=== PATIENT | female | born 1960 ===

== ENCOUNTER 2020-06-10 12:10 | Inpatient (IN) | payer OTHER ==
[2020-06-10] MEDS ORDERED: SODIUM CHLORIDE 0.9% 500 ML 500 ML IV ONE (12:29)
[2020-06-10 12:58] LABS: Hematocrit 45.7 % (30.3-42.9); Hemoglobin 15.1 gm/dl (10.1-14.3); Mean Corpuscular HGB Conc 33 % (30-34); Mean Corpuscular Volume 99 fl (79-97); Platelet Count 334 K/mm3 (140-440); Red Blood Count 4.62 M/mm3 (3.65-5.03); Red Cell Distribution Width 13.6 % (13.2-15.2)
--- NOTE | 2020-06-10 13:01 | XRay Report ---
CHEST 1 VIEW INDICATION: possible Sepsis. COMPARISON: None. FINDINGS: Support devices: None. Heart: Normal. Lungs/Pleura: No acute pulmonary or pleural findings. IMPRESSION: 1. No acute findings. Signer Name: Hi Wallis MD Signed: 06/10/2020 12:57 PM Workstation Name: [id number]
[2020-06-10 13:08] LABS: INR 1.12 (0.87-1.13)
[2020-06-10 13:11] LABS: Albumin 3.9 g/dL (3.9-5)
[2020-06-10] MEDS ORDERED: SODIUM CHLORIDE 0.9% 1000 ML 2,000 ML IV ONE ×2 (13:15→16:23)
[2020-06-10] MEDS ORDERED: cefTRIAXone/NS 1 GM/50 ML 1 GM/50 ML BAG IV ONE (13:15)
[2020-06-10] MEDS ORDERED: SODIUM CHLORIDE 0.9% 1000 ML 1,000 ML IV ONE (13:15)
[2020-06-10] MEDS ORDERED: DEXTROSE 50% IN WATER (25GM) 50 ML SYRINGE IV PRN ×2 (13:17→19:30)
[2020-06-10 13:36] LABS: Basophils % (Manual) 0 % (0.0-1.8); Eosinophils % (Manual) 0 % (0.0-4.3); Platelet Estimate Consistent w Auto; RBC Morphology Normal; Total Cells Counted 100
--- NOTE | 2020-06-10 13:55 | Cat Scan Report ---
CT abdomen pelvis wo con INDICATION: back pain dka. TECHNIQUE: All CT scans at this location are performed using the following dose modulation technique: Automated exposure control. CONTRAST: None. COMPARISON: None available. CT ABDOMEN: The parenchymal organs are unremarkable in appearance. Negative for abdominal mass, fluid or inflammation. The bowel is not dilated or thickened. CT PELVIS: Negative for mass, fluid or inflammation. Noninflamed diverticulosis is greatest at the si gmoid colon. IMPRESSION: Noninflamed colonic diverticulosis. Signer Name: Anam Draper MD Signed: 06/10/2020 1:51 PM Workstation Name: [id number]
[2020-06-10] MEDS ORDERED: D5W/0.45% NACL/KCL 20 MEQ 20 MEQ/1,000 ML BAG IV SCH (14:00)
[2020-06-10] MEDS ORDERED: INSULIN REGULAR, HUMAN 100 UNITS in SODIUM CHLORIDE 0.9% 99 ML IV SCH ×2 (14:00→20:00)
--- NOTE | 2020-06-10 14:27 | Emergency Department Report ---
ED General Adult HPI - General Chief complaint: Weakness Stated complaint: BACK PAIN, SOB PUI?: No Time Seen by Provider: 06/10/20 13:03 Source: patient, RN notes reviewed Mode of arrival: Wheelchair Limitations: Language Barrier, Physical Limitation, Other (The patient is a poor historian) - History of Present Illness Initial comments: The patient was evaluated in the emergency department for symptoms described in the history of present illness. He/she was evaluated in the context of the global COVID-19 pandemic, which necessitated consideration that the patient might be at risk for infection with the virus that causes COVID-19. Institutional protocols and algorithms that pertain to the evaluation of patients at risk for COVID-19 are in a state of rapid change based on information released by regulatory bodies including the CDC and federal and state organizations. These policies and algorithms were followed during the patient's care in the emergency department. Please note that these policies, procedures and recommendations changed on a rapid basis. Patient is a 59-year-old female. She is not known to myself previously. The patient presents to the ER today with a complaint of chest wall pain, back pain, malaise, weakness and fatigue. Please note that this provider is conversant in [place]. The patient is not accompanied by a friend or family at this time for additional information or collateral information. The patient is somewhat of a poor historian. She indicates that she is not having headache, neck pain, she indicates that she has having upper thoracic back pain, paralumbar back pain, and chest wall pain. She also complains of feeling shortness of breath, nausea. She denied loss of taste and smell. She denies dysuria to myself. She was not able to describe exacerbating or relievi ng factors. Patient acutely ill upon arrival, found to be hypothermic, hypotensive, and tachycardic. She was found to have metabolic acidosis, hyperglycemia, suspicious for diabetic ketoacidosis. Treated empirically with fluids, insulin drip, empiric antibiotics, and admitted to the intensive care unit under the care of Dr. Mary Rivera Location: chest, back Quality: other Consistency: other Improves with: other Worsens with: other Associated Symptoms: other - Related Data Allergies Allergy/AdvReac Type Severity Reaction Status Date / Time No Known Allergies Allergy Unverified 06/10/20 12:28 ED Review of Systems ROS: Stated complaint: BACK PAIN, SOB Other details as noted in HPI Comment: Patient is a poor historian Constitutional: malaise Respiratory: shortness of breath Cardiovascular: chest pain Gastrointestinal: as per HPI Genitourinary: as per HPI. denies: dysuria Musculoskeletal: back pain Neurological: weakness ED Physical Exam - General Limitations: Physical Limitation General appearance: anxious, in distress - Head Head exam: Present: atraumatic, normocephalic - Eye Eye exam: Present: normal appearance, EOMI - ENT ENT exam: Present: mucous membranes dry - Neck Neck exam: Present: normal inspection, full ROM. Absent: tenderness, meningismus - Respiratory Respiratory exam: Present: normal lung sounds bilaterally, accessory muscle use, other (The patient is tachypneic). Absent: respiratory distress, wheezes, rales, rhonchi, stridor - Cardiovascular Cardiovascular Exam: Present: normal rhythm, tachycardia, normal heart sounds. Absent: systolic murmur, diastolic murmur, rubs, gallop - GI/Abdominal GI/Abdominal exam: Present: soft. Absent: distended, tenderness, guarding, rebound, rigid, pulsatile mass - Extremities Exam Extremities exam: Present: normal inspection, full ROM, other (2+ pulses noted in the bilateral upper and lower extremities. There is no palpable cord. negative Homans sign. Muscular compartments are soft. The pelvis is stable.). Absent: calf tenderness - Back Exam Back exam: Present: normal inspection. Absent: tenderness, CVA tenderness (R), CVA tenderness (L), paraspinal tenderness, vertebral tenderness - Neurological Exam Neurological exam: Present: alert, other (No facial droop. Tongue midline. Extraocular movements intact bilaterally. Facial sensation intact to light touch in V1, V2, V3 distribution bilaterally. 5 and a 5 strength in 4 extremities. Sensation intact to light touch in 4 extremities.) - Psychiatric Psychiatric exam: Present: anxious - Skin Skin exam: Present: warm, dry, intact, normal color. Absent: rash ED Course Vital Signs 06/10/20 06/10/20 06/10/20 12:32 13:04 13:15 Temperature 94.9 F L Pulse Rate 133 H 116 H Respiratory 20 17 32 H Rate Blood Pressure 99/51 Blood Pressure 90/49 [Right] O2 Sat by Pulse 98 100 Oximetry 06/10/20 06/10/20 06/10/20 13:33 13:45 14:00 Temperature Pulse Rate 114 H 112 H Respiratory 32 H 28 H Rate Blood Pressure 96/54 100/50 Blood Pressure [Right] O2 Sat by Pulse 99 99 Oximetry 06/10/20 06/10/20 06/10/20 14:15 14:30 14:45 Temperature Pulse Rate 112 H 111 H 114 H Respiratory 29 H 27 H 29 H Rate Blood Pressure 96/54 106/47 100/50 Blood Pressure [Right] O2 Sat by Pulse 99 98 98 Oximetry 06/10/20 06/10/20 06/10/20 15:00 15:15 15:30 Temperature Pulse Rate 113 H 113 H 115 H Respiratory 29 H 29 H 28 H Rate Blood Pressure 106/47 104/52 101/59 Blood Pressure [Right] O2 Sat by Pulse 97 97 97 Oximetry 06/10/20 06/10/20 06/10/20 15:45 16:21 18:15 Temperature 96.6 F L 97.0 F L Pulse Rate 118 H Respiratory 28 H Rate Blood Pressure 101/59 Blood Pressure [Right] O2 Sat by Pulse 98 Oximetry ED Medical Decision Making - Lab Data Result diagrams: 06/10/20 12:36 06/10/20 17:24 Vital Signs 06/10/20 06/10/20 06/10/20 12:32 13:04 13:15 Temperature 94.9 F L Pulse Rate 133 H 116 H Respiratory 20 17 32 H Rate Blood Pressure 99/51 Blood Pressure 90/49 [Right] O2 Sat by Pulse 98 100 Oximetry 06/10/20 06/10/20 13:33 13:45 Temperature Pulse Rate 114 H Respiratory 32 H Rate Blood Pressure 96/54 Blood Pressure [Right] O2 Sat by Pulse 99 99 Oximetry Lab Results 06/10/20 06/10/20 06/10/20 Range/Units 12:36 12:36 12:36 WBC 25.8 H (4.5-11.0) K/mm3 RBC 4.62 (3.65-5.03) M/mm3 Hgb 15.1 H (10.1-14.3) gm/dl Hct 45.7 H (30.3-42.9) % MCV 99 H (79-97) fl MCH 33 H (28-32) pg MCHC 33 (30-34) % RDW 13.6 (13.2-15.2) % Plt Count 334 (140-440) K/mm3 Add Manual Diff Complete Total Counted 100 Seg Neuts % (Manual) 92.0 H (40.0-70.0) % Band Neutrophils % 0 % Lymphocytes % (Manual) 3.0 L (13.4-35.0) % Reactive Lymphs % (Man) 0 % Monocytes % (Manual) 5.0 (0.0-7.3) % Eosinophils % (Manual) 0 (0.0-4.3) % Basophils % (Manual) 0 (0.0-1.8) % Metamyelocytes % 0 % Myelocytes % 0 % Promyelocytes % 0 % Blast Cells % 0 % Nucleated RBC % Not Reportable Seg Neutrophils # Man 23.7 H (1.8-7.7) K/mm3 Band Neutrophils # 0.0 K/mm3 Lymphocytes # (Manual) 0.8 L (1.2-5.4) K/mm3 Abs React Lymphs (Man) 0.0 K/mm3 Monocytes # (Manual) 1.3 H (0.0-0.8) K/mm3 Eosinophils # (Manual) 0.0 (0.0-0.4) K/mm3 Basophils # (Manual) 0.0 (0.0-0.1) K/mm3 Metamyelocytes # 0.0 K/mm3 Myelocytes # 0.0 K/mm3 Promyelocytes # 0.0 K/mm3 Blast Cells # 0.0 K/mm3 WBC Morphology Not Reportable Hypersegmented Neuts Not Reportable Hyposegmented Neuts Not Reportable Hypogranular Neuts Not Reportable Smudge Cells Not Reportable Toxic Granulation Not Reportable Toxic Vacuolation Not Reportable Dohle Bodies Not Reportable Pelger-Huet Anomaly Not Reportable Evelia Rods Not Reportable Platelet Estimate Consistent w auto Clumped Platelets Not Reportable Plt Clumps, EDTA Not Reportable Large Platelets Not Reportable Giant Platelets Not Reportable Platelet Satelliting Not Reportable Plt Morphology Comment Not Reportable RBC Morphology Normal Dimorphic RBCs Not Reportable Polychromasia Not Reportable Hypochromasia Not Reportable Poikilocytosis Not Reportable Anisocytosis Not Reportable Microcytosis Not Reportable Macrocytosis Not Reportable Spherocytes Not Reportable Pappenheimer Bodies Not Reportable Sickle Cells Not Reportable Target Cells Not Reportable Tear Drop Cells Not Reportable Ovalocytes Not Reportable Helmet Cells Not Reportable [place] Bodies Not Reportable [place] Rings Not Reportable Gamaliel Cells Not Reportable Bite Cells Not Reportable Crenated Cell Not Reportable Elliptocytes Not Reportable Acanthocytes (Spur) Not Reportable Rouleaux Not Reportable Hemoglobin C Crystals Not Reportable Schistocytes Not Reportable Malaria parasites Not Reportable Joss Bodies Not Reportable Hem Pathologist Commnt No PT 14.6 (12.2-14.9) Sec. INR 1.12 (0.87-1.13) VBG pH (7.320-7.420) Sodium 122 L (137-145) mmol/L Potassium 4.0 (3.6-5.0) mmol/L Chloride 79.5 L (98-107) mmol/L Carbon Dioxide 5 L* (22-30) mmol/L Anion Gap 42 mmol/L BUN 35 H (7-17) mg/dL Creatinine 1.2 (0.6-1.2) mg/dL Estimated GFR 46 ml/min BUN/Creatinine Ratio 29 % Glucose 719 H* (65-100) mg/dL Lactic Acid (0.7-2.0) mmol/L Calcium 9.0 (8.4-10.2) mg/dL Total Bilirubin 0.50 (0.1-1.2) mg/dL AST 18 (5-40) units/L ALT 23 (7-56) units/L Alkaline Phosphatase 130 H (35-129) units/L Total Protein 7.8 (6.3-8.2) g/dL Albumin 3.9 (3.9-5) g/dL Albumin/Globulin Ratio 1.0 % TSH (0.270-4.200) mlU/mL 06/10/20 06/10/20 06/10/20 Range/Units 12:36 12:36 14:26 WBC (4.5-11.0) K/mm3 RBC (3.65-5.03) M/mm3 Hgb (10.1-14.3) gm/dl Hct (30.3-42.9) % MCV (79-97) fl MCH (28-32) pg MCHC (30-34) % RDW (13.2-15.2) % Plt Count (140-440) K/mm3 Add Manual Diff Total Counted Seg Neuts % (Manual) (40.0-70.0) % Band Neutrophils % % Lymphocytes % (Manual) (13.4-35.0) % Reactive Lymphs % (Man) % Monocytes % (Manual) (0.0-7.3) % Eosinophils % (Manual) (0.0-4.3) % Basophils % (Manual) (0.0-1.8) % Metamyelocytes % % Myelocytes % % Promyelocytes % % Blast Cells % % Nucleated RBC % Seg Neutrophils # Man (1.8-7.7) K/mm3 Band Neutrophils # K/mm3 Lymphocytes # (Manual) (1.2-5.4) K/mm3 Abs React Lymphs (Man) K/mm3 Monocytes # (Manual) (0.0-0.8) K/mm3 Eosinophils # (Manual) (0.0-0.4) K/mm3 Basophils # (Manual) (0.0-0.1) K/mm3 Metamyelocytes # K/mm3 Myelocytes # K/mm3 Promyelocytes # K/mm3 Blast Cells # K/mm3 WBC Morphology Hypersegmented Neuts Hyposegmented Neuts Hypogranular Neuts Smudge Cells Toxic Granulation Toxic Vacuolation Dohle Bodies Pelger-Huet Anomaly Evelia Rods Platelet Estimate Clumped Platelets Plt Clumps, EDTA Large Platelets Giant Platelets Platelet Satelliting Plt Morphology Comment RBC Morphology Dimorphic RBCs Polychromasia Hypochromasia Poikilocytosis Anisocytosis Microcytosis Macrocytosis Spherocytes Pappenheimer Bodies Sickle Cells Target Cells Tear Drop Cells Ovalocytes Helmet Cells [place] Bodies In[place] Rings [place] Cells Bite Cells Crenated Cell Elliptocytes Acanthocytes (Spur) Rouleaux Hemoglobin C Crystals Schistocytes Malaria parasites Joss Bodies Hem Pathologist Commnt PT (12.2-14.9) Sec. INR (0.87-1.13) VBG pH 7.021 L* (7.320-7.420) Sodium (137-145) mmol/L Potassium (3.6-5.0) mmol/L Chloride (98-107) mmol/L Carbon Dioxide (22-30) mmol/L Anion Gap mmol/L BUN (7-17) mg/dL Creatinine (0.6-1.2) mg/dL Estimated GFR ml/min BUN/Creatinine Ratio % Glucose (65-100) mg/dL Lactic Acid 2.80 H* (0.7-2.0) mmol/L Calcium (8.4-10.2) mg/dL Total Bilirubin (0.1-1.2) mg/dL AST (5-40) units/L ALT (7-56) units/L Alkaline Phosphatase (35-129) units/L Total Protein (6.3-8.2) g/dL Albumin (3.9-5) g/dL Albumin/Globulin Ratio % TSH 0.161 L (0.270-4.200) mlU/mL - EKG Data -: EKG Interpreted by Me Rate: tachycardia - EKG Data When compared to previous EKG there are: previous EKG unavailable 06/10/20 15:28 Sinus tachycardia, 122 bpm, left axis deviation, QTC is prolonged, poor R wave progression, the EKG is abnormal, the EKG is not a STEMI - Radiology Data Radiology results: pending, report reviewed, image reviewed X-ray of the chest is negative for acute disease. Noncontrast CT scan of the abdomen pelvis is negative for acute disease. - Medical Decision Making Differential diagnosis, include but not limited to: Diabetic ketoacidosis, pneumonia, urinary tract infection, intra-abdominal infection, thyroid derangement Assessment and plan: 59-year-old female who appears to be in diabetic ketoacidosis, with pseudohyponatremia, improving hypotension, hypothermia, requires initiation of IV fluids, antibiotics, active rewarming, and placement into the intensive care unit. Condition critical at this time. Hospital physician Dr Rivera has admitted the patient to the medical service for the aforementioned. Critical Care Time: Yes Critical care time in (mins) excluding proc time.: 35 Critical care attestation.: If time is entered above; I have spent that time in minutes in the direct care of this critically ill patient, excluding procedure time. ED Disposition Clinical Impression: DKA (diabetic ketoacidoses), Back pain, Hypothermia, SIRS (systemic inflammatory response syndrome), Chest pain Disposition: OP ADMIT IP TO THIS HOSP Is pt being admited?: Yes Does the pt Need Aspirin: No Condition: Critical
[2020-06-10 16:36] LABS: BUN/Creatinine Ratio 36; Blood Urea Nitrogen 32 mg/dL (7-17); Calcium 8.1 mg/dL (8.4-10.2); Hemolysis Index 18
[2020-06-10 17:35] LABS: Bacteria,Urine 1+ /HPF (Negative); Bilirubin,Urine NEG (Negative); Blood,Urine MOD (Negative); Color,Urine Straw (Yellow); Mucus,Urine FEW /HPF; Urobilinogen,Urine < 2.0 mg/dL (<2.0)
[2020-06-10 18:14] LABS: BUN/Creatinine Ratio 37; Blood Urea Nitrogen 33 mg/dL (7-17); Calcium 8.2 mg/dL (8.4-10.2); Hemolysis Index 10
--- NOTE | 2020-06-10 19:30 | History and Physical Report ---
History of Present Illness Date of examination: 06/10/20 Date of admission: 06/10/20 14:27 Chief complaint: Shortness of breath and nausea for 3 days History of present illness: 59-year-old Korean-speaking female comes in for shortness of breath and nausea. Very poor historian. No loss of smell or taste. Patient was found to be hypothermic hypotensive and tachycardic on arrival. Work-up in the ER revealed high blood glucose levels around 700 and patient to be in DKA. Not on any medications. No fever or chills. past medical history DM past surgical history n/a family history htn social history No smoking or alcohol Review of Systems ROS: Constitutional feels weak and nauseous HEENT no sore throat no post nasal drip no diplopia Neck no neck stiffness no lymph gland enlargement Chest and lungs no shortness of breath cough or wheezing CVS no chest pain no diaphoresis no palpitations GI nausea and vomiting present Genitourinary system no dysuria no flank pain Musculoskeletal system no muscle pains no joint pains EXTENSION SPECIALIST no syncope no seizures Skin no rash no itching Psychiatric no depression no homicidal or suicidal tendencies Hematologic no lymphedema or bruising Endocrine no polydipsia no polyuria no cold intolerance no heat intolerance Medications and Allergies Allergies Allergy/AdvReac Type Severity Reaction Status Date / Time No Known Allergies Allergy Unverified 06/10/20 12:28 Active Meds: Active Medications Aspirin (Baby Aspirin) 81 mg PO QDAY DENNIS Dextrose (D50w (25gm) Syringe) 0 ml IV Q30MIN PRN; Protocol PRN Reason: Hypoglycemia Insulin Human Regular 100 (units/ Sodium Chloride) 100 mls @ 1 mls/hr IV TITR DENNIS; Protocol Last Titration: 06/10/20 18:32 Dose: 8 units/hr, 8 mls/hr Documented by: Potassium Chloride/Dextrose/Sod Cl (D5w/0.45% Nacl/Kcl 20 Meq) 20 meq in 1,000 mls @ 125 mls/hr IV DIRECT DENNIS Sodium Chloride (Sodium Chloride Flush Syringe 10 Ml) 10 ml IV PRN NR Stop: 06/13/20 13:59 Exam - Constitutional Vitals: Temp Pulse Resp BP Pulse Ox 97.0 F L 118 H 28 H 101/59 98 06/10/20 18:15 06/10/20 15:45 06/10/20 15:45 06/10/20 15:45 06/10/20 15:45 General appearance: Present: no acute distress, well-nourished, other - EENT Eyes: Present: PERRL ENT: hearing intact, clear oral mucosa, other (Tongue dry) - Neck Neck: Present: supple, normal ROM - Respiratory Respiratory effort: normal Respiratory: bilateral: CTA - Cardiovascular Heart rate: 78 Rhythm: regular Heart Sounds: Present: S1 & S2. Absent: rub, click - Extremities Extremities: no ischemia, pulses intact, pulses symmetrical, No edema Peripheral Pulses: within normal limits - Abdominal General gastrointestinal: Present: soft, non-tender, non-distended, normal bowel sounds Female genitourinary: Present: normal - Integumentary Integumentary: Present: clear, warm, dry - Musculoskeletal Musculoskeletal: gait normal, strength equal bilaterally - Psychiatric Psychiatric: appropriate mood/affect, intact judgment & insight - Neurologic Neurologic: CNII-XII intact, moves all extremities - Allied Health Allied health notes reviewed: nursing, case management Results - Labs CBC & Chem 7: 06/10/20 12:36 06/11/20 05:23 Labs: Laboratory Last Values WBC 25.8 K/mm3 (4.5-11.0) H 06/10/20 12:36 RBC 4.62 M/mm3 (3.65-5.03) 06/10/20 12:36 Hgb 15.1 gm/dl (10.1-14.3) H 06/10/20 12:36 Hct 45.7 % (30.3-42.9) H 06/10/20 12:36 MCV 99 fl (79-97) H 06/10/20 12:36 MCH 33 pg (28-32) H 06/10/20 12:36 MCHC 33 % (30-34) 06/10/20 12:36 RDW 13.6 % (13.2-15.2) 06/10/20 12:36 Plt Count 334 K/mm3 (140-440) 06/10/20 12:36 Add Manual Diff Complete 06/10/20 12:36 Total Counted 100 06/10/20 12:36 Seg Neuts % (Manual) 92.0 % (40.0-70.0) H 06/10/20 12:36 Band Neutrophils % 0 % 06/10/20 12:36 Lymphocytes % (Manual) 3.0 % (13.4-35.0) L 06/10/20 12:36 Reactive Lymphs % (Man) 0 % 06/10/20 12:36 Monocytes % (Manual) 5.0 % (0.0-7.3) 06/10/20 12:36 Eosinophils % (Manual) 0 % (0.0-4.3) 06/10/20 12:36 Basophils % (Manual) 0 % (0.0-1.8) 06/10/20 12:36 Metamyelocytes % 0 % 06/10/20 12:36 Myelocytes % 0 % 06/10/20 12:36 Promyelocytes % 0 % 06/10/20 12:36 Blast Cells % 0 % 06/10/20 12:36 Nucleated RBC % Not Reportable 06/10/20 12:36 Seg Neutrophils # Man 23.7 K/mm3 (1.8-7.7) H 06/10/20 12:36 Band Neutrophils # 0.0 K/mm3 06/10/20 12:36 Lymphocytes # (Manual) 0.8 K/mm3 (1.2-5.4) L 06/10/20 12:36 Abs React Lymphs (Man) 0.0 K/mm3 06/10/20 12:36 Monocytes # (Manual) 1.3 K/mm3 (0.0-0.8) H 06/10/20 12:36 Eosinophils # (Manual) 0.0 K/mm3 (0.0-0.4) 06/10/20 12:36 Basophils # (Manual) 0.0 K/mm3 (0.0-0.1) 06/10/20 12:36 Metamyelocytes # 0.0 K/mm3 06/10/20 12:36 Myelocytes # 0.0 K/mm3 06/10/20 12:36 Promyelocytes # 0.0 K/mm3 06/10/20 12:36 Blast Cells # 0.0 K/mm3 06/10/20 12:36 WBC Morphology Not Reportable 06/10/20 12:36 Hypersegmented Neuts Not Reportable 06/10/20 12:36 Hyposegmented Neuts Not Reportable 06/10/20 12:36 Hypogranular Neuts Not Reportable 06/10/20 12:36 Smudge Cells Not Reportable 06/10/20 12:36 Toxic Granulation Not Reportable 06/10/20 12:36 Toxic Vacuolation Not Reportable 06/10/20 12:36 Dohle Bodies Not Reportable 06/10/20 12:36 Pelger-Huet Anomaly Not Reportable 06/10/20 12:36 Evelia Rods Not Reportable 06/10/20 12:36 Platelet Estimate Consistent w auto 06/10/20 12:36 Clumped Platelets Not Reportable 06/10/20 12:36 Plt Clumps, EDTA Not Reportable 06/10/20 12:36 Large Platelets Not Reportable 06/10/20 12:36 Giant Platelets Not Reportable 06/10/20 12:36 Platelet Satelliting Not Reportable 06/10/20 12:36 Plt Morphology Comment Not Reportable 06/10/20 12:36 RBC Morphology Normal 06/10/20 12:36 Dimorphic RBCs Not Reportable 06/10/20 12:36 Polychromasia Not Reportable 06/10/20 12:36 Hypochromasia Not Reportable 06/10/20 12:36 Poikilocytosis Not Reportable 06/10/20 12:36 Anisocytosis Not Reportable 06/10/20 12:36 Microcytosis Not Reportable 06/10/20 12:36 Macrocytosis Not Reportable 06/10/20 12:36 Spherocytes Not Reportable 06/10/20 12:36 Pappenheimer Bodies Not Reportable 06/10/20 12:36 Sickle Cells Not Reportable 06/10/20 12:36 Target Cells Not Reportable 06/10/20 12:36 Tear Drop Cells Not Reportable 06/10/20 12:36 Ovalocytes Not Reportable 06/10/20 12:36 Helmet Cells Not Reportable 06/10/20 12:36 [place] Bodies Not Reportable 06/10/20 12:36 [place] Rings Not Reportable 06/10/20 12:36 [place] Cells Not Reportable 06/10/20 12:36 Bite Cells Not Reportable 06/10/20 12:36 Crenated Cell Not Reportable 06/10/20 12:36 Elliptocytes Not Reportable 06/10/20 12:36 Acanthocytes (Spur) Not Reportable 06/10/20 12:36 Rouleaux Not Reportable 06/10/20 12:36 Hemoglobin C Crystals Not Reportable 06/10/20 12:36 Schistocytes Not Reportable 06/10/20 12:36 Malaria parasites Not Reportable 06/10/20 12:36 Joss Bodies Not Reportable 06/10/20 12:36 Hem Pathologist Commnt No 06/10/20 12:36 PT 14.6 Sec. (12.2-14.9) 06/10/20 12:36 INR 1.12 (0.87-1.13) 06/10/20 12:36 VBG pH 7.021 (7.320-7.420) L* 06/10/20 12:36 Sodium 133 mmol/L (137-145) L 06/10/20 17:24 Potassium 3.2 mmol/L (3.6-5.0) L 06/10/20 17:24 Chloride 97.5 mmol/L (98-107) L 06/10/20 17:24 Carbon Dioxide 5 mmol/L (22-30) L* 06/10/20 17:24 Anion Gap 34 mmol/L 06/10/20 17:24 BUN 33 mg/dL (7-17) H 06/10/20 17:24 Creatinine 0.9 mg/dL (0.6-1.2) 06/10/20 17:24 Estimated GFR > 60 ml/min 06/10/20 17:24 BUN/Creatinine Ratio 37 % 06/10/20 17:24 Glucose 515 mg/dL (65-100) H* 06/10/20 17:24 POC Glucose 464 (70-105) H 06/10/20 18:21 Lactic Acid 1.50 mmol/L (0.7-2.0) 06/10/20 15:56 Calcium 8.2 mg/dL (8.4-10.2) L 06/10/20 17:24 Total Bilirubin 0.50 mg/dL (0.1-1.2) 06/10/20 12:36 AST 18 units/L (5-40) 06/10/20 12:36 ALT 23 units/L (7-56) 06/10/20 12:36 Alkaline Phosphatase 130 units/L (35-129) H 06/10/20 12:36 Total Protein 7.8 g/dL (6.3-8.2) 06/10/20 12:36 Albumin 3.9 g/dL (3.9-5) 06/10/20 12:36 Albumin/Globulin Ratio 1.0 % 06/10/20 12:36 TSH 0.161 mlU/mL (0.270-4.200) L 06/10/20 14:26 Free T4 1.27 ng/dL (0.76-1.46) 06/10/20 15:56 Urine Color Straw (Yellow) 06/10/20 17:13 Urine Turbidity Clear (Clear) 06/10/20 17:13 Urine pH 5.0 (5.0-7.0) 06/10/20 17:13 Ur Specific [place] 1.015 (1.003-1.030) 06/10/20 17:13 Urine Protein 30 mg/dl mg/dL (Negative) 06/10/20 17:13 Urine Glucose (UA) >=500 mg/dL (Negative) 06/10/20 17:13 Urine Ketones 80 mg/dL (Negative) 06/10/20 17:13 Urine Blood Mod (Negative) 06/10/20 17:13 Urine Nitrite Neg (Negative) 06/10/20 17:13 Urine Bilirubin Neg (Negative) 06/10/20 17:13 Urine Urobilinogen < 2.0 mg/dL (<2.0) 06/10/20 17:13 Ur Leukocyte Esterase Neg (Negative) 06/10/20 17:13 Urine WBC (Auto) 3.0 /HPF (0.0-6.0) 06/10/20 17:13 Urine RBC (Auto) 1.0 /HPF (0.0-6.0) 06/10/20 17:13 Urine Bacteria (Auto) 1+ /HPF (Negative) 06/10/20 17:13 Urine Mucus Few /HPF 06/10/20 17:13 Short CBC 06/10/20 Range/Units 12:36 WBC 25.8 H (4.5-11.0) K/mm3 Hgb 15.1 H (10.1-14.3) gm/dl Hct 45.7 H (30.3-42.9) % Plt Count 334 (140-440) K/mm3 BMP 06/10/20 06/10/20 06/10/20 12:36 15:56 17:24 Sodium 122 L 128 L 133 L Potassium 4.0 3.9 3.2 L Chloride 79.5 L 93.2 L 97.5 L Carbon Dioxide 5 L* 4 L* 5 L* BUN 35 H 32 H 33 H Creatinine 1.2 0.9 0.9 Glucose 719 H* 547 H* 515 H* Calcium 9.0 8.1 L 8.2 L 06/10/20 06/10/20 06/11/20 20:42 22:31 00:04 Sodium 135 L 133 L 135 L Potassium 2.7 L* 2.7 L* 2.9 L* Chloride 103.2 103.7 109.2 H Carbon Dioxide 7 L* 8 L* 8 L* BUN 31 H 28 H 25 H Creatinine 0.8 0.8 0.6 Glucose 280 H 200 H 200 H Calcium 9.4 9.5 8.7 06/11/20 06/11/20 06/11/20 01:42 03:14 05:23 Sodium 135 L 136 L 136 L Potassium 3.0 L 3.1 L 3.0 L Chloride 108.9 H 109.9 H 109.6 H Carbon Dioxide 11 L 10 L 12 L BUN 21 H 20 H 16 Creatinine 0.6 0.5 L 0.5 L Glucose 221 H 220 H 149 H Calcium 8.4 8.5 8.6 Cardiac Enzymes 06/10/20 06/10/20 Range/Units 20:42 20:42 Total Creatine Kinase 85 (30-135) units/L Troponin T < 0.010 (0.00-0.029) ng/mL Liver Function 06/10/20 Range/Units 12:36 Total Bilirubin 0.50 (0.1-1.2) mg/dL AST 18 (5-40) units/L ALT 23 (7-56) units/L Alkaline Phosphatase 130 H (35-129) units/L Albumin 3.9 (3.9-5) g/dL Urine 06/10/20 Range/Units 17:13 Urine Color Straw (Yellow) Urine pH 5.0 (5.0-7.0) Ur Specific [place] 1.015 (1.003-1.030) Urine Protein 30 mg/dl (Negative) mg/dL Urine Glucose (UA) >=500 (Negative) mg/dL Microbiology: Microbiology 06/10/20 12:36 Peripheral/Venous Blood Culture - Preliminary Culture in Progress 06/10/20 12:36 Peripheral/Venous Blood Culture - Preliminary Culture in Progress - Imaging and Cardiology Imaging and Cardiology: Abdominal/pelvic CT Noninflamed colonic diverticulosis Chest x-ray No acute findings Assessment and Plan Assessment and plan: Critical care statement The high probability OF a clinically significant sudden or life-threatening deterioration of the cardiorespiratory system and endocrine system required my full and direct attention, intervention and postoperative management. The aggregate critical care time was 40 minutes. The time is in addition to time s pent performing reported procedures but includes the followin: Data review and interpretation 2: Patient assessment and monitoring of vital signs 3: Documentation 4:: Medication orders and management Advance Directives: Yes (Full code) VTE prophylaxis?: Chemical Plan of care discussed with patient/family: Yes - Patient Problems (1) DKA (diabetic ketoacidoses) Current Visit: Yes Status: Acute Qualifiers: Diabetes mellitus type: type 2 Diabetes mellitus complication detail: without coma Qualified Code(s): E11.10 - Type 2 diabetes mellitus with ketoacidosis without coma Plan to address problem: DKA protocol initiated IV insulin to be titrated IV normal saline followed by D5 normal saline Potassium if necessary to be supplemented (2) SIRS (systemic inflammatory response syndrome) Current Visit: Yes Status: Acute Plan to address problem: Patient is tachypneic and has a high white count IV antibiotics empirically (3) Metabolic acidosis Current Visit: Yes Status: Acute Plan to address problem: Severe Manage his DKA (4) Hyponatremia Current Visit: Yes Status: Acute Plan to address problem: Secondary to high blood glucose levels Should correct with correction of blood glucose levels (5) Hypokalemia Current Visit: Yes Status: Acute Plan to address problem: To be supplemented as necessary (6) Hypothermia Current Visit: Yes Status: Acute Qualifiers: Encounter type: initial encounter Qualified Code(s): T68.XXXA - Hypothermia, initial encounter Plan to address problem: Warming blanket for now (7) DVT prophylaxis Current Visit: Yes Status: Acute Plan to address problem: Heparin subcu and GI prophylaxis
[2020-06-10] MEDS ORDERED: METOCLOPRAMIDE 10 MG/2 ML INJ IV PRN (19:34)
[2020-06-10] MEDS ORDERED: HYDROmorphone 1 MG/1 ML INJ IV PRN (19:34)
[2020-06-10] MEDS ORDERED: ONDANSETRON 4 MG/2 ML INJ IV PRN (19:34)
[2020-06-10] MEDS ORDERED: MORPHINE 2 MG/1 ML INJ IV PRN (19:34)
[2020-06-10] MEDS ORDERED: ACETAMINOPHEN 325 MG TAB PO PRN (19:34)
[2020-06-10] MEDS ORDERED: PROMETHAZINE 25 MG RECT SUPP PR PRN (19:34)
[2020-06-10] MEDS ORDERED: NALOXONE 0.4 MG/1 ML INJ IV PRN (19:34)
[2020-06-10] MEDS ORDERED: D5W/0.9% NACL 1,000 ML IV SCH (20:00)
[2020-06-10] MEDS ORDERED: SODIUM CHLORIDE 0.9% 1000 ML 2,000 ML ONE (20:22)
[2020-06-10] MEDS ORDERED: POTASSIUM CHLORIDE 10 MEQ 10 MEQ/100 ML BAG IV ONE ×2 (20:22→21:34)
[2020-06-10] MEDS: ASPIRIN 81 MG TAB CHEW PO SCH (20:24)
[2020-06-10] MEDS: POTASSIUM CHLORIDE 10 MEQ 10 MEQ/100 ML BAG IV SCH ×5 (20:25→22:49)
[2020-06-10] MEDS ORDERED: ASPIRIN 81 MG TAB CHEW ONE (20:25)
[2020-06-10 20:58] LABS: INR 1.1 (0.87-1.13)
[2020-06-10] MEDS ORDERED: D5W/0.2% NACL 1,000 ML IV ONE (21:32)
[2020-06-10 21:35] LABS: BUN/Creatinine Ratio 39; Blood Urea Nitrogen 31 mg/dL (7-17); Calcium 9.4 mg/dL (8.4-10.2); Hemolysis Index 25
[2020-06-10] MEDS ORDERED: FAMOTIDINE 20 MG/2 ML INJ IV SCH (22:00)
[2020-06-10] MEDS ORDERED: POTASSIUM PHOSPHATE 30 MMOL in SODIUM CHLORIDE 0.9% 500 ML 500 ML IV SCH (22:45)
[2020-06-10 23:15] LABS: BUN/Creatinine Ratio 35; Blood Urea Nitrogen 28 mg/dL (7-17); Calcium 9.5 mg/dL (8.4-10.2); Hemolysis Index 12
[2020-06-11] MEDS: POTASSIUM CHLORIDE 10 MEQ 10 MEQ/100 ML BAG IV SCH ×7 (00:40→22:56)
[2020-06-11 00:43] LABS: Blood Urea Nitrogen 25 mg/dL (7-17); Calcium 8.7 mg/dL (8.4-10.2); Hemolysis Index 20
[2020-06-11] MEDS ORDERED: FAMOTIDINE 20 MG/2 ML INJ IV ONE (00:47)
[2020-06-11 01:17] LABS: BUN/Creatinine Ratio 42
[2020-06-11 02:14] LABS: Blood Urea Nitrogen 21 mg/dL (7-17); Calcium 8.4 mg/dL (8.4-10.2); Hemolysis Index 9
[2020-06-11 02:16] LABS: BUN/Creatinine Ratio 35
[2020-06-11 03:58] LABS: Blood Urea Nitrogen 20 mg/dL (7-17); Calcium 8.5 mg/dL (8.4-10.2); Hemolysis Index 19
[2020-06-11 03:59] LABS: BUN/Creatinine Ratio 40
[2020-06-11] MEDS ORDERED: POTASSIUM CHLORIDE 10 MEQ 20 MEQ/200 ML BAG IV ONE (04:23)
[2020-06-11 06:06] LABS: Blood Urea Nitrogen 16 mg/dL (7-17); Calcium 8.6 mg/dL (8.4-10.2); Hemolysis Index 22
[2020-06-11 06:08] LABS: BUN/Creatinine Ratio 32
--- NOTE | 2020-06-11 08:07 | Progress Note ---
Assessment and Plan Assessment and plan: --DKA (diabetic ketoacidoses) Current Visit: Yes Status: Acute Plan to address problem: DKA protocol on insulin drip Patient's blood sugars reasonable level Anion gap closed, however has acidosis Will start ADA diet, if patient tolerates breakfast Will DC insulin drip and transition to long-acting insulin --Metabolic acidosis Current Visit: Yes Status: Acute Plan to address problem: Bicarb 12, significantly improved from 4 Rigorous IV hydration 1 L x 2 fluid bolus normal saline Sodium bicarb if needed --Elevated D-dimers; CTA chest negative for PE --Hypokalemia; Current Visit: Yes Status: Acute Plan to address problem: KCl 40 mEq x 1 dose oral, check magnesium levels. --SIRS (systemic inflammatory response syndrome) Current Visit: Yes Status: Acute Plan to address problem: Patient is tachypneic and has a high white count IV antibiotics empirically --Hyponatremia/pseudohyponatremia due to hyperglycemia Current Visit: Yes Status: Acute Plan to address problem: Secondary to high blood glucose levels Should correct with correction of blood glucose levels Sodium levels significantly improved -- Hypothermia Current Visit: Yes Status: Acute Plan to address problem: Warming blanket for now -- DVT prophylaxis Current Visit: Yes Status: Acute Plan to address problem: Heparin subcu and GI prophylaxis We will try to reach family to get more information about the patient And also discuss patient's condition and treatment plan If patient feels better in 1 to 2 hours and tolerates diet Patient can be downgraded to medical floor Plan of care reviewed with the patient and her nurse Critical care time 40 minutes The high probability of a clinically significant, sudden or life threatening deterioration of the [Endocrine and metabolic] system(s) required my full and direct attention, intervention and personal management. The aggregate critical care time was [40] minutes. This time is in addition to time spent performing reported procedures but includes the following: [x] Data Review and interpretation [x] Patient assessment and monitoring of vital signs [x] Documentation [x] Medication orders and management History Interval history: I have seen and examined the patient in in ED awaiting ICU bed assignment Patient was admitted with diabetic ketoacidosis, on DKA pathway With insulin drip and IV fluids Patient's blood sugars are reasonable level, anion gap closed, continues to have metabolic acidosis Patient feels slightly better, mild nausea no vomiting Vital signs reviewed Hospitalist Physical - Constitutional Vitals: Temp Pulse Resp BP Pulse Ox 99.3 F 122 H 42 H 123/71 96 06/11/20 07:51 06/11/20 07:45 06/11/20 07:45 06/11/20 07:45 06/11/20 07:45 General appearance: Present: no acute distress, well-nourished - EENT Eyes: Present: PERRL, EOM intact - Neck Neck: Present: supple, normal ROM - Respiratory Respiratory effort: normal Respiratory: bilateral: diminished, negative: rales, rhonchi, wheezing - Cardiovascular Rhythm: regular Heart Sounds: Present: S1 & S2 - Extremities Extremities: no ischemia, No edema - Abdominal General gastrointestinal: soft, non-tender, non-distended, normal bowel sounds - Integumentary Integumentary: Present: clear, warm - Psychiatric Psychiatric: appropriate mood/affect, cooperative - Neurologic Neurologic: moves all extremities HEART Score - HEART Score Troponin: Troponin T < 0.010 ng/mL (0.00-0.029) 06/10/20 20:42 Results - Labs CBC & Chem 7: 06/10/20 12:36 06/11/20 14:27 Labs: Laboratory Last Values WBC 25.8 K/mm3 (4.5-11.0) H 06/10/20 12:36 RBC 4.62 M/mm3 (3.65-5.03) 06/10/20 12:36 Hgb 15.1 gm/dl (10.1-14.3) H 06/10/20 12:36 Hct 45.7 % (30.3-42.9) H 06/10/20 12:36 MCV 99 fl (79-97) H 06/10/20 12:36 MCH 33 pg (28-32) H 06/10/20 12:36 MCHC 33 % (30-34) 06/10/20 12:36 RDW 13.6 % (13.2-15.2) 06/10/20 12:36 Plt Count 334 K/mm3 (140-440) 06/10/20 12:36 Add Manual Diff Complete 06/10/20 12:36 Total Counted 100 06/10/20 12:36 Seg Neuts % (Manual) 92.0 % (40.0-70.0) H 06/10/20 12:36 Band Neutrophils % 0 % 06/10/20 12:36 Lymphocytes % (Manual) 3.0 % (13.4-35.0) L 06/10/20 12:36 Reactive Lymphs % (Man) 0 % 06/10/20 12:36 Monocytes % (Manual) 5.0 % (0.0-7.3) 06/10/20 12:36 Eosinophils % (Manual) 0 % (0.0-4.3) 06/10/20 12:36 Basophils % (Manual) 0 % (0.0-1.8) 06/10/20 12:36 Metamyelocytes % 0 % 06/10/20 12:36 Myelocytes % 0 % 06/10/20 12:36 Promyelocytes % 0 % 06/10/20 12:36 Blast Cells % 0 % 06/10/20 12:36 Nucleated RBC % Not Reportable 06/10/20 12:36 Seg Neutrophils # Man 23.7 K/mm3 (1.8-7.7) H 06/10/20 12:36 Band Neutrophils # 0.0 K/mm3 06/10/20 12:36 Lymphocytes # (Manual) 0.8 K/mm3 (1.2-5.4) L 06/10/20 12:36 Abs React Lymphs (Man) 0.0 K/mm3 06/10/20 12:36 Monocytes # (Manual) 1.3 K/mm3 (0.0-0.8) H 06/10/20 12:36 Eosinophils # (Manual) 0.0 K/mm3 (0.0-0.4) 06/10/20 12:36 Basophils # (Manual) 0.0 K/mm3 (0.0-0.1) 06/10/20 12:36 Metamyelocytes # 0.0 K/mm3 06/10/20 12:36 Myelocytes # 0.0 K/mm3 06/10/20 12:36 Promyelocytes # 0.0 K/mm3 06/10/20 12:36 Blast Cells # 0.0 K/mm3 06/10/20 12:36 WBC Morphology Not Reportable 06/10/20 12:36 Hypersegmented Neuts Not Reportable 06/10/20 12:36 Hyposegmented Neuts Not Reportable 06/10/20 12:36 Hypogranular Neuts Not Reportable 06/10/20 12:36 Smudge Cells Not Reportable 06/10/20 12:36 Toxic Granulation Not Reportable 06/10/20 12:36 Toxic Vacuolation Not Reportable 06/10/20 12:36 Dohle Bodies Not Reportable 06/10/20 12:36 Pelger-Huet Anomaly Not Reportable 06/10/20 12:36 Evelia Rods Not Reportable 06/10/20 12:36 Platelet Estimate Consistent w auto 06/10/20 12:36 Clumped Platelets Not Reportable 06/10/20 12:36 Plt Clumps, EDTA Not Reportable 06/10/20 12:36 Large Platelets Not Reportable 06/10/20 12:36 Giant Platelets Not Reportable 06/10/20 12:36 Platelet Satelliting Not Reportable 06/10/20 12:36 Plt Morphology Comment Not Reportable 06/10/20 12:36 RBC Morphology Normal 06/10/20 12:36 Dimorphic RBCs Not Reportable 06/10/20 12:36 Polychromasia Not Reportable 06/10/20 12:36 Hypochromasia Not Reportable 06/10/20 12:36 Poikilocytosis Not Reportable 06/10/20 12:36 Anisocytosis Not Reportable 06/10/20 12:36 Microcytosis Not Reportable 06/10/20 12:36 Macrocytosis Not Reportable 06/10/20 12:36 Spherocytes Not Reportable 06/10/20 12:36 Pappenheimer Bodies Not Reportable 06/10/20 12:36 Sickle Cells Not Reportable 06/10/20 12:36 Target Cells Not Reportable 06/10/20 12:36 Tear Drop Cells Not Reportable 06/10/20 12:36 Ovalocytes Not Reportable 06/10/20 12:36 Helmet Cells Not Reportable 06/10/20 12:36 [place] Bodies Not Reportable 06/10/20 12:36 [place] Rings Not Reportable 06/10/20 12:36 [place] Cells Not Reportable 06/10/20 12:36 Bite Cells Not Reportable 06/10/20 12:36 Crenated Cell Not Reportable 06/10/20 12:36 Elliptocytes Not Reportable 06/10/20 12:36 Acanthocytes (Spur) Not Reportable 06/10/20 12:36 Rouleaux Not Reportable 06/10/20 12:36 Hemoglobin C Crystals Not Reportable 06/10/20 12:36 Schistocytes Not Reportable 06/10/20 12:36 Malaria parasites Not Reportable 06/10/20 12:36 Joss Bodies Not Reportable 06/10/20 12:36 Hem Pathologist Commnt No 06/10/20 12:36 PT 14.4 Sec. (12.2-14.9) 06/10/20 20:42 INR 1.10 (0.87-1.13) 06/10/20 20:42 D-Dimer 383.92 ng/mlDDU (0-234) H 06/11/20 05:44 VBG pH 7.021 (7.320-7.420) L* 06/10/20 12:36 Sodium 136 mmol/L (137-145) L 06/11/20 05:23 Potassium 3.0 mmol/L (3.6-5.0) L 06/11/20 05:23 Chloride 109.6 mmol/L (98-107) H 06/11/20 05:23 Carbon Dioxide 12 mmol/L (22-30) L 06/11/20 05:23 Anion Gap 17 mmol/L 06/11/20 05:23 BUN 16 mg/dL (7-17) 06/11/20 05:23 Creatinine 0.5 mg/dL (0.6-1.2) L 06/11/20 05:23 Estimated GFR > 60 ml/min 06/11/20 05:23 BUN/Creatinine Ratio 32 % 06/11/20 05:23 Glucose 149 mg/dL (65-100) H 06/11/20 05:23 POC Glucose 175 (70-105) H 06/11/20 07:56 Lactic Acid 1.50 mmol/L (0.7-2.0) 06/10/20 15:56 Calcium 8.6 mg/dL (8.4-10.2) 06/11/20 05:23 Phosphorus 2.70 mg/dL (2.5-4.5) D 06/11/20 03:14 Magnesium 1.60 mg/dL (1.7-2.3) L 06/10/20 20:42 Total Bilirubin 0.50 mg/dL (0.1-1.2) 06/10/20 12:36 AST 18 units/L (5-40) 06/10/20 12:36 ALT 23 units/L (7-56) 06/10/20 12:36 Alkaline Phosphatase 130 units/L (35-129) H 06/10/20 12:36 Total Creatine Kinase 85 units/L (30-135) 06/10/20 20:42 Troponin T < 0.010 ng/mL (0.00-0.029) 06/10/20 20:42 Total Protein 7.8 g/dL (6.3-8.2) 06/10/20 12:36 Albumin 3.9 g/dL (3.9-5) 06/10/20 12:36 Albumin/Globulin Ratio 1.0 % 06/10/20 12:36 TSH 0.161 mlU/mL (0.270-4.200) L 06/10/20 14:26 Free T4 1.27 ng/dL (0.76-1.46) 06/10/20 15:56 Urine Color Straw (Yellow) 06/10/20 17:13 Urine Turbidity Clear (Clear) 06/10/20 17:13 Urine pH 5.0 (5.0-7.0) 06/10/20 17:13 Ur Specific [place] 1.015 (1.003-1.030) 06/10/20 17:13 Urine Protein 30 mg/dl mg/dL (Negative) 06/10/20 17:13 Urine Glucose (UA) >=500 mg/dL (Negative) 06/10/20 17:13 Urine Ketones 80 mg/dL (Negative) 06/10/20 17:13 Urine Blood Mod (Negative) 06/10/20 17:13 Urine Nitrite Neg (Negative) 06/10/20 17:13 Urine Bilirubin Neg (Negative) 06/10/20 17:13 Urine Urobilinogen < 2.0 mg/dL (<2.0) 06/10/20 17:13 Ur Leukocyte Esterase Neg (Negative) 06/10/20 17:13 Urine WBC (Auto) 3.0 /HPF (0.0-6.0) 06/10/20 17:13 Urine RBC (Auto) 1.0 /HPF (0.0-6.0) 06/10/20 17:13 Urine Bacteria (Auto) 1+ /HPF (Negative) 06/10/20 17:13 Urine Mucus Few /HPF 06/10/20 17:13 Microbiology: Microbiology 06/10/20 12:36 Peripheral/Venous Blood Culture - Preliminary Culture in Progress 06/10/20 12:36 Peripheral/Venous Blood Culture - Preliminary Culture in Progress Active Medications - Current Medications Current Medications: Generic Name Dose Route Start Last Admin Trade Name Freq PRN Reason Stop Dose Admin Acetaminophen 650 mg 06/10/20 19:34 Tylenol PO Q4H PRN Pain MILD(1-3)/Fever >100.5/FORDE Aspirin 81 mg 06/10/20 16:00 06/10/20 20:24 Baby Aspirin PO 81 mg QDAY DENNIS Administration Dextrose 0 ml 06/10/20 19:30 D50w (25gm) Syringe IV Q30MIN PRN Hypoglycemia Protocol Famotidine 20 mg 06/10/20 22:00 06/11/20 00:47 Pepcid IV 20 mg BID DENNIS Administration Hydromorphone HCl 1 mg 06/10/20 19:34 Dilaudid IV Q3H PRN Pain , Severe (7-10) Insulin Human Regular 100 100 mls @ 1 mls/hr 06/10/20 20:00 06/11/20 07:52 units/ Sodium Chloride IV 3 units/hr TITR DENNIS 3 mls/hr Titration Protocol 1 UNITS/HR Dextrose/Sodium Chloride 1,000 mls @ 100 mls/hr 06/10/20 20:00 06/10/20 21:32 D5ns IV 100 mls/hr DIRECT DENNIS Administration Metoclopramide HCl 10 mg 06/10/20 19:34 Reglan IV Q6H PRN Nausea And Vomiting Morphine Sulfate 2 mg 06/10/20 19:34 Morphine IV Q4H PRN Pain, Moderate (4-6) Naloxone HCl 0.1 mg 06/10/20 19:34 Naloxone IV Q2MIN PRN Res Rate </= 8 or 02 SAT < 92% Ondansetron HCl 4 mg 06/10/20 19:34 Zofran IV Q3H PRN Nausea And Vomiting Promethazine HCl 25 mg 06/10/20 19:34 Phenergan OK Q6H PRN N/V IF NPO AND NO IV ACCESS Sodium Chloride 10 ml 06/10/20 22:00 06/11/20 00:48 Sodium Chloride Flush Syringe 10 Ml IV 10 ml BID DENNIS Administration Sodium Chloride 10 ml 06/10/20 19:34 Sodium Chloride Flush Syringe 10 Ml IV PRN PRN LINE FLUSH
[2020-06-11] MEDS ORDERED: INSULIN NPH/REGULAR 70/30 INJ SUB-Q SCH ×2 (09:00→17:00)
[2020-06-11] MEDS ORDERED: INSULIN NPH/REGULAR 70/30 INJ SUB-Q ONE (09:00)
[2020-06-11] MEDS ORDERED: SODIUM CHLORIDE 0.9% 1000 ML 2,000 ML IV ONE (09:00)
[2020-06-11] MEDS ORDERED: POTASSIUM CHLORIDE ER 20 MEQ TAB PO ONE ×2 (09:00→10:09)
--- NOTE | 2020-06-11 09:27 | Cat Scan Report ---
CTA chest with contrast INDICATION : Elevated D-dimers, evaluate for PE. TECHNIQUE: Axial imaging performed through the chest, with contrast bolus timing set to maximize opa cification of the pulmonary arteries. 3-plane MIP reformatted images were obtained. All CT scans at this location are performed using CT dose reduction for ALARA by means of automated exposure control. 100 mL of intravenous contrast administered. COMPARISON: CT abdomen/pelvis from yesterday FINDINGS: Bolus: Contrast bolus timing is adequate. PTE: No filling defect is present to suggest PTE. Mediastinum: Heart and great vessels appear normal. No pathologic mediastinal adenopathy. Lungs: There are trace bilateral pleural effusions with streaky bibasilar airspace disease which may at least in part reflect compressive atelectasis changes. The upper lungs are clear. Upper abdomen: Limited imaging of the upper abdomen shows nothing acute. Bones: Degenerative changes in the spine with nothing acute. IMPRESSION: 1. Negative for PTE. 2. Trace bilateral pleural effusions with bibasilar compressive atelectasis. Cannot exclude superimpo sed basilar airspace disease. Signer Name: Bill Sauer MD Signed: 06/11/2020 9:23 AM Workstation Name: [id number]
[2020-06-11] MEDS ORDERED: SODIUM CHLORIDE 0.9% 1000 ML 1,000 ML ONE (09:53)
[2020-06-11] MEDS ORDERED: FAMOTIDINE 20 MG TAB ONE (10:17)
[2020-06-11] MEDS ORDERED: METOCLOPRAMIDE 10 MG/2 ML INJ ONE (10:17)
[2020-06-11] MEDS: FAMOTIDINE 20 MG TAB PO SCH ×2 (10:18→21:07)
[2020-06-11] MEDS: INSULIN LISPRO 100 UNIT/ML VIAL 3 mL SUB-Q SCH ×3 (12:37→22:13)
[2020-06-11] MEDS: ASPIRIN 81 MG TAB CHEW PO SCH (12:42)
[2020-06-11] MEDS ORDERED: ASPIRIN 81 MG TAB CHEW ONE (12:42)
[2020-06-11 15:14] LABS: Blood Urea Nitrogen 10 mg/dL (7-17); Hemolysis Index 109
[2020-06-11 15:33] LABS: BUN/Creatinine Ratio 25
[2020-06-11] MEDS ORDERED: SODIUM CHLORIDE 0.9% 1000 ML 1,000 ML IV ONE (15:51)
--- NOTE | 2020-06-11 15:58 | Event Note ---
Date: 06/11/20 Patient was refusing to take any diet or fluids saying that she has no appetite Through the language line, I and patient's nurse Ms. Hyman discussed in detail with the patient And advised her to eat some food and it would help her get her insulin to bring down the blood sugars And also to treat DKA, we also discussed the options of Dobbhoff placement and tube feeding, if she is unable to Take oral nutrition and medications. Patient verbalized understanding and now agreed to eat and drink. We will continue Accu-Cheks q. before meals and at bedtime, and sliding scale coverage with NovoLog moderate dose We will also started long-acting insulin 70/30 Novolin 12 units twice a day subcu Patient has severe acidosis with bicarb of 8 I will give thousand mL normal saline fluid bolus stat IV sodium bicarb 50 mEq stat And normal saline with sodium bicarbonate drip at 150 mL/h. Also told the patient that she does not like the hospital food we can request her family members To bring food from home/outside Patient verbalized understanding. We will closely monitor the blood sugars and adjust as needed Patient will receive diabetic diet education, and diabetic education prior to discharge Plan of care reviewed with the patient's nurse.
[2020-06-11] MEDS: INSULIN NPH/REGULAR 70/30 INJ SUB-Q SCH (16:34)
[2020-06-11] MEDS ORDERED: SODIUM BICARB 8.4% 50 MEQ/50 ML SYRINGE IV ONE (16:45)
[2020-06-11] MEDS ORDERED: SODIUM CHLORIDE 0.9% 1000 ML 1,000 ML with SODIUM BICARBONATE 50 MEQ IV SCH (17:00)
[2020-06-11] MEDS ORDERED: FUROSEMIDE 40 MG/4 ML INJ IV ONE (18:05)
[2020-06-11 20:11] LABS: Blood Urea Nitrogen 8 mg/dL (7-17); Calcium 8.7 mg/dL (8.4-10.2); Hemolysis Index 5
[2020-06-11 20:12] LABS: BUN/Creatinine Ratio 16
[2020-06-11] MEDS: cefTRIAXone/NS 2 GM/100 ML 2 GM/100 ML BAG IV SCH (20:32)
[2020-06-11] MEDS: POTASSIUM CHLORIDE ER 20 MEQ TAB PO SCH (20:32)
[2020-06-12] MEDS: POTASSIUM CHLORIDE 10 MEQ 10 MEQ/100 ML BAG IV SCH ×2 (00:57→02:05)
[2020-06-12] MEDS: POTASSIUM CHLORIDE ER 20 MEQ TAB PO SCH ×2 (03:00→14:02)
[2020-06-12 07:42] LABS: Basophils % (Auto) 0.2 % (0.0-1.8); Hematocrit 38.3 % (30.3-42.9); Hemoglobin 13.3 gm/dl (10.1-14.3); Lymphocytes # (Auto) 1.1 K/mm3 (1.2-5.4); Mean Corpuscular HGB Conc 35 % (30-34); Mean Corpuscular Volume 92 fl (79-97); Monocytes # (Auto) 1.2 K/mm3 (0.0-0.8); Monocytes % (Auto) 7.3 % (0.0-7.3); Platelet Count 184 K/mm3 (140-440); Red Blood Count 4.17 M/mm3 (3.65-5.03); Red Cell Distribution Width 13.3 % (13.2-15.2)
[2020-06-12 08:05] LABS: Alanine Aminotransferase 23 units/L (7-56); Albumin 2.9 g/dL (3.9-5); Blood Urea Nitrogen 7 mg/dL (7-17); Calcium 8.6 mg/dL (8.4-10.2); Hemolysis Index 16
[2020-06-12 08:13] LABS: BUN/Creatinine Ratio 18
--- NOTE | 2020-06-12 08:14 | Progress Note ---
Assessment and Plan Assessment and plan: --DKA (diabetic ketoacidoses) Current Visit: Yes Status: Acute Plan to address problem: s/p DKA protocol on insulin drip Currently on Accu-Chek sliding scale coverage ADA diet Long-acting insulin Novolin 70/30 --Type 2 diabetes mellitus; Current Visit: Yes Status: Acute Plan to address problem: status post DKA Uncontrolled blood sugars Accu-Chek sliding scale coverage ADA diet Closely monitor blood sugars adjust Novolin 70/30 dose As needed Diabetic education, diabetic diet education Possible home health nurse for disease monitoring at discharge --Metabolic acidosis Current Visit: Yes Status: Acute Plan to address problem: Improving, continue IV fluids Sodium bicarb if needed --Elevated D-dimers; CTA chest negative for PE Check lower extremity venous Doppler to evaluate for DVT --Hypokalemia/hypophosphatemia Current Visit: Yes Status: Acute Plan to address problem: Replace with potassium phosphate IV Follow electrolytes --SIRS (systemic inflammatory response syndrome) Current Visit: Yes Status: Acute Plan to address problem: Patient is tachypneic and has a high white count IV antibiotics empirically, blood cultures negative to date Follow urine cultures --Hyponatremia/pseudohyponatremia due to hyperglycemia Current Visit: Yes Status: Acute Plan to address problem: Secondary to high blood glucose levels Should correct with correction of blood glucose levels Sodium levels significantly improved --Severe protein calorie malnutrition; Current Visit: Yes Status: Acute Plan to address problem: Nutrition supplements, nutrition consult, supportive care -- Hypothermia Current Visit: Yes Status: Acute . Plan to address problem: Resolved a good morning -- DVT prophylaxis Current Visit: Yes Status: Acute Plan to address problem: Heparin subcu and GI prophylaxis We will try to reach family to get more information about the patient And also discuss patient's condition and treatment plan We will closely monitor the patient and adjust the management as needed History Interval history: I have seen and examined the patient at the bedside this morning Patient feels better, able to communicate through language line and public information relations manager Blood sugars slightly improved No new overnight events reported by nursing Alert awake oriented Vital signs noted Hospitalist Physical - Constitutional Vitals: Temp Pulse Resp BP Pulse Ox 99.2 F 120 H 26 H 155/87 95 06/11/20 22:09 06/11/20 22:09 06/11/20 22:09 06/11/20 22:09 06/11/20 22:09 General appearance: Present: no acute distress, well-nourished - EENT Eyes: Present: PERRL, EOM intact - Neck Neck: Present: supple, normal ROM - Respiratory Respiratory effort: normal Respiratory: bilateral: diminished, negative: rales, rhonchi, wheezing - Cardiovascular Rhythm: regular Heart Sounds: Present: S1 & S2 - Extremities Extremities: no ischemia, No edema - Abdominal General gastrointestinal: soft, non-tender, non-distended, normal bowel sounds - Integumentary Integumentary: Present: clear, warm - Psychiatric Psychiatric: appropriate mood/affect, cooperative - Neurologic Neurologic: moves all extremities HEART Score - HEART Score Troponin: Troponin T < 0.010 ng/mL (0.00-0.029) 06/10/20 20:42 Results - Labs CBC & Chem 7: 06/12/20 07:00 06/12/20 07:00 Labs: Laboratory Last Values WBC 16.0 K/mm3 (4.5-11.0) H 06/12/20 07:00 RBC 4.17 M/mm3 (3.65-5.03) 06/12/20 07:00 Hgb 13.3 gm/dl (10.1-14.3) 06/12/20 07:00 Hct 38.3 % (30.3-42.9) D 06/12/20 07:00 MCV 92 fl (79-97) 06/12/20 07:00 MCH 32 pg (28-32) 06/12/20 07:00 MCHC 35 % (30-34) H 06/12/20 07:00 RDW 13.3 % (13.2-15.2) 06/12/20 07:00 Plt Count 184 K/mm3 (140-440) 06/12/20 07:00 Lymph % (Auto) 7.0 % (13.4-35.0) L 06/12/20 07:00 [place] % (Auto) 7.3 % (0.0-7.3) 06/12/20 07:00 Eos % (Auto) 0.0 % (0.0-4.3) 06/12/20 07:00 Baso % (Auto) 0.2 % (0.0-1.8) 06/12/20 07:00 Lymph # (Auto) 1.1 K/mm3 (1.2-5.4) L 06/12/20 07:00 [place] # (Auto) 1.2 K/mm3 (0.0-0.8) H 06/12/20 07:00 Eos # (Auto) 0.0 K/mm3 (0.0-0.4) 06/12/20 07:00 Baso # (Auto) 0.0 K/mm3 (0.0-0.1) 06/12/20 07:00 Add Manual Diff Complete 06/10/20 12:36 Total Counted 100 06/10/20 12:36 Seg Neutrophils % 85.5 % (40.0-70.0) H 06/12/20 07:00 Seg Neuts % (Manual) 92.0 % (40.0-70.0) H 06/10/20 12:36 Band Neutrophils % 0 % 06/10/20 12:36 Lymphocytes % (Manual) 3.0 % (13.4-35.0) L 06/10/20 12:36 Reactive Lymphs % (Man) 0 % 06/10/20 12:36 Monocytes % (Manual) 5.0 % (0.0-7.3) 06/10/20 12:36 Eosinophils % (Manual) 0 % (0.0-4.3) 06/10/20 12:36 Basophils % (Manual) 0 % (0.0-1.8) 06/10/20 12:36 Metamyelocytes % 0 % 06/10/20 12:36 Myelocytes % 0 % 06/10/20 12:36 Promyelocytes % 0 % 06/10/20 12:36 Blast Cells % 0 % 06/10/20 12:36 Nucleated RBC % Not Reportable 06/10/20 12:36 Seg Neutrophils # 13.7 K/mm3 (1.8-7.7) H 06/12/20 07:00 Seg Neutrophils # Man 23.7 K/mm3 (1.8-7.7) H 06/10/20 12:36 Band Neutrophils # 0.0 K/mm3 06/10/20 12:36 Lymphocytes # (Manual) 0.8 K/mm3 (1.2-5.4) L 06/10/20 12:36 Abs React Lymphs (Man) 0.0 K/mm3 06/10/20 12:36 Monocytes # (Manual) 1.3 K/mm3 (0.0-0.8) H 06/10/20 12:36 Eosinophils # (Manual) 0.0 K/mm3 (0.0-0.4) 06/10/20 12:36 Basophils # (Manual) 0.0 K/mm3 (0.0-0.1) 06/10/20 12:36 Metamyelocytes # 0.0 K/mm3 06/10/20 12:36 Myelocytes # 0.0 K/mm3 06/10/20 12:36 Promyelocytes # 0.0 K/mm3 06/10/20 12:36 Blast Cells # 0.0 K/mm3 06/10/20 12:36 WBC Morphology Not Reportable 06/10/20 12:36 Hypersegmented Neuts Not Reportable 06/10/20 12:36 Hyposegmented Neuts Not Reportable 06/10/20 12:36 Hypogranular Neuts Not Reportable 06/10/20 12:36 Smudge Cells Not Reportable 06/10/20 12:36 Toxic Granulation Not Reportable 06/10/20 12:36 Toxic Vacuolation Not Reportable 06/10/20 12:36 Dohle Bodies Not Reportable 06/10/20 12:36 Pelger-Huet Anomaly Not Reportable 06/10/20 12:36 Evelia Rods Not Reportable 06/10/20 12:36 Platelet Estimate Consistent w auto 06/10/20 12:36 Clumped Platelets Not Reportable 06/10/20 12:36 Plt Clumps, EDTA Not Reportable 06/10/20 12:36 Large Platelets Not Reportable 06/10/20 12:36 Giant Platelets Not Reportable 06/10/20 12:36 Platelet Satelliting Not Reportable 06/10/20 12:36 Plt Morphology Comment Not Reportable 06/10/20 12:36 RBC Morphology Normal 06/10/20 12:36 Dimorphic RBCs Not Reportable 06/10/20 12:36 Polychromasia Not Reportable 06/10/20 12:36 Hypochromasia Not Reportable 06/10/20 12:36 Poikilocytosis Not Reportable 06/10/20 12:36 Anisocytosis Not Reportable 06/10/20 12:36 Microcytosis Not Reportable 06/10/20 12:36 Macrocytosis Not Reportable 06/10/20 12:36 Spherocytes Not Reportable 06/10/20 12:36 Pappenheimer Bodies Not Reportable 06/10/20 12:36 Sickle Cells Not Reportable 06/10/20 12:36 Target Cells Not Reportable 06/10/20 12:36 Tear Drop Cells Not Reportable 06/10/20 12:36 Ovalocytes Not Reportable 06/10/20 12:36 Helmet Cells Not Reportable 06/10/20 12:36 [place] Bodies Not Reportable 06/10/20 12:36 [place]ona Rings Not Reportable 06/10/20 12:36 Gamaliel Cells Not Reportable 06/10/20 12:36 Bite Cells Not Reportable 06/10/20 12:36 Crenated Cell Not Reportable 06/10/20 12:36 Elliptocytes Not Reportable 06/10/20 12:36 Acanthocytes (Spur) Not Reportable 06/10/20 12:36 Rouleaux Not Reportable 06/10/20 12:36 Hemoglobin C Crystals Not Reportable 06/10/20 12:36 Schistocytes Not Reportable 06/10/20 12:36 Malaria parasites Not Reportable 06/10/20 12:36 Joss Bodies Not Reportable 06/10/20 12:36 Hem Pathologist Commnt No 06/10/20 12:36 PT 14.4 Sec. (12.2-14.9) 06/10/20 20:42 INR 1.10 (0.87-1.13) 06/10/20 20:42 D-Dimer 383.92 ng/mlDDU (0-234) H 06/11/20 05:44 VBG pH 7.021 (7.320-7.420) L* 06/10/20 12:36 Sodium 137 mmol/L (137-145) 06/12/20 07:00 Potassium 3.1 mmol/L (3.6-5.0) L 06/12/20 07:00 Chloride 101.3 mmol/L (98-107) 06/12/20 07:00 Carbon Dioxide 16 mmol/L (22-30) L 06/12/20 07:00 Anion Gap 23 mmol/L 06/12/20 07:00 BUN 7 mg/dL (7-17) 06/12/20 07:00 Creatinine 0.5 mg/dL (0.6-1.2) L 06/11/20 19:37 Estimated GFR > 60 ml/min 06/11/20 19:37 BUN/Creatinine Ratio 16 % 06/11/20 19:37 Glucose 294 mg/dL (65-100) H 06/12/20 07:00 POC Glucose 277 (70-105) H 06/12/20 07:47 Lactic Acid 1.50 mmol/L (0.7-2.0) 06/10/20 15:56 Calcium 8.6 mg/dL (8.4-10.2) 06/12/20 07:00 Phosphorus 2.70 mg/dL (2.5-4.5) D 06/11/20 03:14 Magnesium 1.70 mg/dL (1.7-2.3) 06/12/20 07:00 Total Bilirubin 0.90 mg/dL (0.1-1.2) 06/12/20 07:00 AST 37 units/L (5-40) 06/12/20 07:00 ALT 23 units/L (7-56) 06/12/20 07:00 Alkaline Phosphatase 85 units/L (35-129) 06/12/20 07:00 Total Creatine Kinase 85 units/L (30-135) 06/10/20 20:42 Troponin T < 0.010 ng/mL (0.00-0.029) 06/10/20 20:42 Total Protein 7.8 g/dL (6.3-8.2) 06/10/20 12:36 Albumin 2.9 g/dL (3.9-5) L 06/12/20 07:00 Albumin/Globulin Ratio 1.0 % 06/12/20 07:00 TSH 0.161 mlU/mL (0.270-4.200) L 06/10/20 14:26 Free T4 1.27 ng/dL (0.76-1.46) 06/10/20 15:56 Urine Color Straw (Yellow) 06/10/20 17:13 Urine Turbidity Clear (Clear) 06/10/20 17:13 Urine pH 5.0 (5.0-7.0) 06/10/20 17:13 Ur Specific [place] 1.015 (1.003-1.030) 06/10/20 17:13 Urine Protein 30 mg/dl mg/dL (Negative) 06/10/20 17:13 Urine Glucose (UA) >=500 mg/dL (Negative) 06/10/20 17:13 Urine Ketones 80 mg/dL (Negative) 06/10/20 17:13 Urine Blood Mod (Negative) 06/10/20 17:13 Urine Nitrite Neg (Negative) 06/10/20 17:13 Urine Bilirubin Neg (Negative) 06/10/20 17:13 Urine Urobilinogen < 2.0 mg/dL (<2.0) 06/10/20 17:13 Ur Leukocyte Esterase Neg (Negative) 06/10/20 17:13 Urine WBC (Auto) 3.0 /HPF (0.0-6.0) 06/10/20 17:13 Urine RBC (Auto) 1.0 /HPF (0.0-6.0) 06/10/20 17:13 Urine Bacteria (Auto) 1+ /HPF (Negative) 06/10/20 17:13 Urine Mucus Few /HPF 06/10/20 17:13 Microbiology: Microbiology 06/10/20 12:36 Peripheral/Venous Blood Culture - Preliminary NO GROWTH AFTER 24 HOURS 06/10/20 12:36 Peripheral/Venous Blood Culture - Preliminary NO GROWTH AFTER 24 HOURS Curry/IV: Voiding Method Toilet IV Catheter Type [Right INT / Saline Lock Antecubital] IV Catheter Type [Right Hand] INT / Saline Lock Active Medications - Current Medications Current Medications: Generic Name Dose Route Start Last Admin Trade Name Freq PRN Reason Stop Dose Admin Acetaminophen 650 mg 06/10/20 19:34 Tylenol PO Q4H PRN Pain MILD(1-3)/Fever >100.5/FORDE Aspirin 81 mg 06/10/20 16:00 06/11/20 12:42 Baby Aspirin PO 81 mg QDAY DENNIS Administration Dextrose 0 ml 06/10/20 19:30 D50w (25gm) Syringe IV Q30MIN PRN Hypoglycemia Protocol Famotidine 20 mg 06/11/20 10:00 06/11/20 21:07 Pepcid PO 20 mg BID DENNIS Administration Hydromorphone HCl 1 mg 06/10/20 19:34 Dilaudid IV Q3H PRN Pain , Severe (7-10) Ceftriaxone Sodium 2 gm in 100 mls @ 200 mls/hr 06/11/20 20:09 06/11/20 20:32 Rocephin/Ns 2 Gm/100 Ml IV 200 mls/hr Q24HR DENNIS Administration Protocol Sodium Bicarbonate 50 meq/ 1,050 mls @ 75 mls/hr 06/12/20 07:00 Sodium Chloride IV DIRECT DENNIS Insulin Human Isoph/Insulin Regular 12 unit 06/11/20 17:00 06/11/20 16:34 Humulin 70/30 SUB-Q 12 unit BIDDIAB DENNIS Administration Insulin Human Lispro 0 unit 06/11/20 11:30 06/11/20 22:13 Humalog SUB-Q 8 unit ACHS DENNIS Administration Protocol Metoclopramide HCl 10 mg 06/10/20 19:34 06/11/20 10:18 Reglan IV 10 mg Q6H PRN Administration Nausea And Vomiting Morphine Sulfate 2 mg 06/10/20 19:34 Morphine IV Q4H PRN Pain, Moderate (4-6) Naloxone HCl 0.1 mg 06/10/20 19:34 Naloxone IV Q2MIN PRN Res Rate </= 8 or 02 SAT < 92% Ondansetron HCl 4 mg 06/10/20 19:34 Zofran IV Q3H PRN Nausea And Vomiting Potassium Chloride 40 meq 06/11/20 21:00 06/12/20 03:00 K-Dur PO 06/12/20 09:01 40 meq Q6H DENNIS Administration Promethazine HCl 25 mg 06/10/20 19:34 Phenergan [place] Q6H PRN N/V IF NPO AND NO IV ACCESS Sodium Chloride 10 ml 06/10/20 22:00 06/11/20 21:07 Sodium Chloride Flush Syringe 10 Ml IV 10 ml BID DENNIS Administration Sodium Chloride 10 ml 06/10/20 19:34 Sodium Chloride Flush Syringe 10 Ml IV PRN PRN LINE FLUSH
[2020-06-12] MEDS ORDERED: POTASSIUM PHOSPHATE 40 MMOL in SODIUM CHLORIDE 0.9% 500 ML 500 ML IV ONE (09:00)
[2020-06-12] MEDS: cefTRIAXone/NS 2 GM/100 ML 2 GM/100 ML BAG IV SCH (09:07)
[2020-06-12] MEDS: ASPIRIN 81 MG TAB CHEW PO SCH (09:08)
[2020-06-12] MEDS: INSULIN NPH/REGULAR 70/30 INJ SUB-Q SCH ×2 (09:08→18:07)
[2020-06-12] MEDS: FAMOTIDINE 20 MG TAB PO SCH ×2 (09:08→22:41)
[2020-06-12] MEDS ORDERED: METOPROLOL TARTRATE 50 MG TAB PO ONE (11:01)
[2020-06-12] MEDS: INSULIN LISPRO 100 UNIT/ML VIAL 3 mL SUB-Q SCH ×4 (11:17→22:44)
[2020-06-12] MEDS ORDERED: METOPROLOL TARTRATE 25 MG TAB PO NR (11:30)
[2020-06-12] MEDS: SODIUM BICARBONATE 50 MEQ in SODIUM CHLORIDE 0.9% 1000 ML 1,000 ML IV SCH (13:05)
[2020-06-12] MEDS: METOPROLOL TARTRATE 25 MG TAB PO SCH (22:41)
[2020-06-13] MEDS: INSULIN NPH/REGULAR 70/30 INJ SUB-Q SCH (08:41)
[2020-06-13] MEDS: INSULIN LISPRO 100 UNIT/ML VIAL 3 mL SUB-Q SCH ×4 (08:43→22:06)
[2020-06-13 09:06] LABS: Blood Urea Nitrogen 8 mg/dL (7-17); Calcium 8.7 mg/dL (8.4-10.2); Hemolysis Index 4
[2020-06-13 09:07] LABS: BUN/Creatinine Ratio 27
--- NOTE | 2020-06-13 10:26 | Progress Note ---
Assessment and Plan Assessment and plan: --DKA (diabetic ketoacidoses) Current Visit: Yes Status: Acute Plan to address problem: s/p DKA protocol on insulin drip Currently on Accu-Chek sliding scale coverage ADA diet Long-acting insulin Novolin 70/30 --Type 2 diabetes mellitus; moderate control Current Visit: Yes Status: Acute Plan to address problem: status post DKA Uncontrolled blood sugars Accu-Chek sliding scale coverage ADA diet Closely monitor blood sugars increase Novolin 70/30 dose to 16 units twice daily Diabetic education, diabetic diet education Possible home health nurse for disease monitoring at discharge --Metabolic acidosis Current Visit: Yes Status: Acute Plan to address problem: Improving, continue IV fluids Sodium bicarb if needed --Elevated D-dimers; CTA chest negative for PE Check lower extremity venous Doppler to evaluate for DVT --Hypokalemia/hypophosphatemia Current Visit: Yes Status: Acute Plan to address problem: Replace with potassium phosphate IV Follow electrolytes --SIRS (systemic inflammatory response syndrome) Current Visit: Yes Status: Acute Plan to address problem: Patient is tachypneic and has a high white count IV antibiotics empirically, blood cultures negative to date Follow urine cultures --Hyponatremia/pseudohyponatremia due to hyperglycemia Current Visit: Yes Status: Acute Plan to address problem: Secondary to high blood glucose levels Should correct with correction of blood glucose levels Sodium levels significantly improved --Severe protein calorie malnutrition; Current Visit: Yes Status: Acute Plan to address problem: Nutrition supplements, nutrition consult, supportive care -- Hypothermia Current Visit: Yes Status: Acute . Plan to address problem: Resolved a good morning -- DVT prophylaxis Current Visit: Yes Status: Acute Plan to address problem: Heparin subcu and GI prophylaxis We will try to reach family to get more information about the patient And also discuss patient's condition and treatment plan We will closely monitor the patient and adjust the management as needed 06/13; patient's blood sugars moderate control increase Novolin 70/30 dose Monitor blood sugars and adjust as needed Possible discharge tomorrow if stable History Interval history: I have seen and examined the patient at the bedside Patient's chart and medications reviewed Patient's blood sugars are moderately controlled No new complaints Hospitalist Physical - Constitutional Vitals: Temp Pulse Resp BP Pulse Ox 97.9 F 95 H 16 121/77 93 06/13/20 06:22 06/13/20 06:22 06/13/20 06:22 06/13/20 06:22 06/13/20 06:22 General appearance: Present: no acute distress, well-nourished - EENT Eyes: Present: PERRL, EOM intact - Neck Neck: Present: supple, normal ROM - Respiratory Respiratory effort: normal Respiratory: bilateral: diminished, negative: rales, rhonchi, wheezing - Cardiovascular Rhythm: regular Heart Sounds: Present: S1 & S2 - Extremities Extremities: no ischemia, No edema - Abdominal General gastrointestinal: soft, non-tender, non-distended, normal bowel sounds - Integumentary Integumentary: Present: clear, warm - Psychiatric Psychiatric: appropriate mood/affect, cooperative - Neurologic Neurologic: CNII-XII intact, moves all extremities HEART Score - HEART Score Troponin: Troponin T < 0.010 ng/mL (0.00-0.029) 06/10/20 20:42 Results - Labs CBC & Chem 7: 06/12/20 07:00 06/13/20 08:29 Labs: Laboratory Last Values WBC 16.0 K/mm3 (4.5-11.0) H 06/12/20 07:00 RBC 4.17 M/mm3 (3.65-5.03) 06/12/20 07:00 Hgb 13.3 gm/dl (10.1-14.3) 06/12/20 07:00 Hct 38.3 % (30.3-42.9) D 06/12/20 07:00 MCV 92 fl (79-97) 06/12/20 07:00 MCH 32 pg (28-32) 06/12/20 07:00 MCHC 35 % (30-34) H 06/12/20 07:00 RDW 13.3 % (13.2-15.2) 06/12/20 07:00 Plt Count 184 K/mm3 (140-440) 06/12/20 07:00 Lymph % (Auto) 7.0 % (13.4-35.0) L 06/12/20 07:00 [place] % (Auto) 7.3 % (0.0-7.3) 06/12/20 07:00 Eos % (Auto) 0.0 % (0.0-4.3) 06/12/20 07:00 Baso % (Auto) 0.2 % (0.0-1.8) 06/12/20 07:00 Lymph # (Auto) 1.1 K/mm3 (1.2-5.4) L 06/12/20 07:00 [place] # (Auto) 1.2 K/mm3 (0.0-0.8) H 06/12/20 07:00 Eos # (Auto) 0.0 K/mm3 (0.0-0.4) 06/12/20 07:00 Baso # (Auto) 0.0 K/mm3 (0.0-0.1) 06/12/20 07:00 Add Manual Diff Complete 06/10/20 12:36 Total Counted 100 06/10/20 12:36 Seg Neutrophils % 85.5 % (40.0-70.0) H 06/12/20 07:00 Seg Neuts % (Manual) 92.0 % (40.0-70.0) H 06/10/20 12:36 Band Neutrophils % 0 % 06/10/20 12:36 Lymphocytes % (Manual) 3.0 % (13.4-35.0) L 06/10/20 12:36 Reactive Lymphs % (Man) 0 % 06/10/20 12:36 Monocytes % (Manual) 5.0 % (0.0-7.3) 06/10/20 12:36 Eosinophils % (Manual) 0 % (0.0-4.3) 06/10/20 12:36 Basophils % (Manual) 0 % (0.0-1.8) 06/10/20 12:36 Metamyelocytes % 0 % 06/10/20 12:36 Myelocytes % 0 % 06/10/20 12:36 Promyelocytes % 0 % 06/10/20 12:36 Blast Cells % 0 % 06/10/20 12:36 Nucleated RBC % Not Reportable 06/10/20 12:36 Seg Neutrophils # 13.7 K/mm3 (1.8-7.7) H 06/12/20 07:00 Seg Neutrophils # Man 23.7 K/mm3 (1.8-7.7) H 06/10/20 12:36 Band Neutrophils # 0.0 K/mm3 06/10/20 12:36 Lymphocytes # (Manual) 0.8 K/mm3 (1.2-5.4) L 06/10/20 12:36 Abs React Lymphs (Man) 0.0 K/mm3 06/10/20 12:36 Monocytes # (Manual) 1.3 K/mm3 (0.0-0.8) H 06/10/20 12:36 Eosinophils # (Manual) 0.0 K/mm3 (0.0-0.4) 06/10/20 12:36 Basophils # (Manual) 0.0 K/mm3 (0.0-0.1) 06/10/20 12:36 Metamyelocytes # 0.0 K/mm3 06/10/20 12:36 Myelocytes # 0.0 K/mm3 06/10/20 12:36 Promyelocytes # 0.0 K/mm3 06/10/20 12:36 Blast Cells # 0.0 K/mm3 06/10/20 12:36 WBC Morphology Not Reportable 06/10/20 12:36 Hypersegmented Neuts Not Reportable 06/10/20 12:36 Hyposegmented Neuts Not Reportable 06/10/20 12:36 Hypogranular Neuts Not Reportable 06/10/20 12:36 Smudge Cells Not Reportable 06/10/20 12:36 Toxic Granulation Not Reportable 06/10/20 12:36 Toxic Vacuolation Not Reportable 06/10/20 12:36 Dohle Bodies Not Reportable 06/10/20 12:36 Pelger-Huet Anomaly Not Reportable 06/10/20 12:36 Evelia Rods Not Reportable 06/10/20 12:36 Platelet Estimate Consistent w auto 06/10/20 12:36 Clumped Platelets Not Reportable 06/10/20 12:36 Plt Clumps, EDTA Not Reportable 06/10/20 12:36 Large Platelets Not Reportable 06/10/20 12:36 Giant Platelets Not Reportable 06/10/20 12:36 Platelet Satelliting Not Reportable 06/10/20 12:36 Plt Morphology Comment Not Reportable 06/10/20 12:36 RBC Morphology Normal 06/10/20 12:36 Dimorphic RBCs Not Reportable 06/10/20 12:36 Polychromasia Not Reportable 06/10/20 12:36 Hypochromasia Not Reportable 06/10/20 12:36 Poikilocytosis Not Reportable 06/10/20 12:36 Anisocytosis Not Reportable 06/10/20 12:36 Microcytosis Not Reportable 06/10/20 12:36 Macrocytosis Not Reportable 06/10/20 12:36 Spherocytes Not Reportable 06/10/20 12:36 Pappenheimer Bodies Not Reportable 06/10/20 12:36 Sickle Cells Not Reportable 06/10/20 12:36 Target Cells Not Reportable 06/10/20 12:36 Tear Drop Cells Not Reportable 06/10/20 12:36 Ovalocytes Not Reportable 06/10/20 12:36 Helmet Cells Not Reportable 06/10/20 12:36 [place] Bodies Not Reportable 06/10/20 12:36 [place] Rings Not Reportable 06/10/20 12:36 [place] Cells Not Reportable 06/10/20 12:36 Bite Cells Not Reportable 06/10/20 12:36 Crenated Cell Not Reportable 06/10/20 12:36 Elliptocytes Not Reportable 06/10/20 12:36 Acanthocytes (Spur) Not Reportable 06/10/20 12:36 Rouleaux Not Reportable 06/10/20 12:36 Hemoglobin C Crystals Not Reportable 06/10/20 12:36 Schistocytes Not Reportable 06/10/20 12:36 Malaria parasites Not Reportable 06/10/20 12:36 Joss Bodies Not Reportable 06/10/20 12:36 Hem Pathologist Commnt No 06/10/20 12:36 PT 14.4 Sec. (12.2-14.9) 06/10/20 20:42 INR 1.10 (0.87-1.13) 06/10/20 20:42 D-Dimer 383.92 ng/mlDDU (0-234) H 06/11/20 05:44 VBG pH 7.021 (7.320-7.420) L* 06/10/20 12:36 Sodium 139 mmol/L (137-145) 06/13/20 08:29 Potassium 3.2 mmol/L (3.6-5.0) L 06/13/20 08:29 Chloride 96.2 mmol/L (98-107) L 06/13/20 08:29 Carbon Dioxide 24 mmol/L (22-30) D 06/13/20 08:29 Anion Gap 22 mmol/L 06/13/20 08:29 BUN 8 mg/dL (7-17) 06/13/20 08:29 Creatinine 0.3 mg/dL (0.6-1.2) L 06/13/20 08:29 Estimated GFR > 60 ml/min 06/13/20 08:29 BUN/Creatinine Ratio 27 % 06/13/20 08:29 Glucose 284 mg/dL (65-100) H 06/13/20 08:29 POC Glucose 260 (70-105) H 06/13/20 07:55 Lactic Acid 1.50 mmol/L (0.7-2.0) 06/10/20 15:56 Calcium 8.7 mg/dL (8.4-10.2) 06/13/20 08: Phosphorus 2.50 mg/dL (2.5-4.5) D 06/13/20 08:29 Magnesium 1.90 mg/dL (1.7-2.3) 06/13/20 08:29 Total Bilirubin 0.90 mg/dL (0.1-1.2) 06/12/20 07:00 AST 37 units/L (5-40) 06/12/20 07:00 ALT 23 units/L (7-56) 06/12/20 07:00 Alkaline Phosphatase 85 units/L (35-129) 06/12/20 07:00 Total Creatine Kinase 85 units/L (30-135) 06/10/20 20:42 Troponin T < 0.010 ng/mL (0.00-0.029) 06/10/20 20:42 Total Protein 5.9 g/dL (6.3-8.2) L D 06/12/20 07:00 Albumin 2.9 g/dL (3.9-5) L 06/12/20 07:00 Albumin/Globulin Ratio 1.0 % 06/12/20 07:00 TSH 0.161 mlU/mL (0.270-4.200) L 06/10/20 14:26 Free T4 1.27 ng/dL (0.76-1.46) 06/10/20 15:56 Urine Color Straw (Yellow) 06/10/20 17:13 Urine Turbidity Clear (Clear) 06/10/20 17:13 Urine pH 5.0 (5.0-7.0) 06/10/20 17:13 Ur Specific [place] 1.015 (1.003-1.030) 06/10/20 17:13 Urine Protein 30 mg/dl mg/dL (Negative) 06/10/20 17:13 Urine Glucose (UA) >=500 mg/dL (Negative) 06/10/20 17:13 Urine Ketones 80 mg/dL (Negative) 06/10/20 17:13 Urine Blood Mod (Negative) 06/10/20 17:13 Urine Nitrite Neg (Negative) 06/10/20 17:13 Urine Bilirubin Neg (Negative) 06/10/20 17:13 Urine Urobilinogen < 2.0 mg/dL (<2.0) 06/10/20 17:13 Ur Leukocyte Esterase Neg (Negative) 06/10/20 17:13 Urine WBC (Auto) 3.0 /HPF (0.0-6.0) 06/10/20 17:13 Urine RBC (Auto) 1.0 /HPF (0.0-6.0) 06/10/20 17:13 Urine Bacteria (Auto) 1+ /HPF (Negative) 06/10/20 17:13 Urine Mucus Few /HPF 06/10/20 17:13 Microbiology: Microbiology 06/10/20 12:36 Peripheral/Venous Blood Culture - Preliminary NO GROWTH AFTER 48 HOURS 06/10/20 12:36 Peripheral/Venous Blood Culture - Preliminary NO GROWTH AFTER 48 HOURS 06/10/20 17:14 Urine,Clean Catch Urine Culture - Preliminary [place]/IV: Voiding Method Toilet IV Catheter Type [Right INT / Saline Lock Antecubital] IV Catheter Type [Right Hand] INT / Saline Lock Active Medications - Current Medications Current Medications: Generic Name Dose Route Start Last Admin Trade Name Freq PRN Reason Stop Dose Admin Acetaminophen 650 mg 06/10/20 19:34 Tylenol PO Q4H PRN Pain MILD(1-3)/Fever >100.5/FORDE Aspirin 81 mg 06/10/20 16:00 06/12/20 09:08 Baby Aspirin PO 81 mg QDAY DENNIS Administration Dextrose 0 ml 06/10/20 19:30 D50w (25gm) Syringe IV Q30MIN PRN Hypoglycemia Protocol Famotidine 20 mg 06/11/20 10:00 06/12/20 22:41 Pepcid PO 20 mg BID DENNIS Administration Hydromorphone HCl 1 mg 06/10/20 19:34 Dilaudid IV Q3H PRN Pain , Severe (7-10) Ceftriaxone Sodium 2 gm in 100 mls @ 200 mls/hr 06/11/20 20:09 06/12/20 09:07 Rocephin/Ns 2 Gm/100 Ml IV 06/17/20 20:08 200 mls/hr Q24HR DENNIS Administration Protocol Sodium Bicarbonate 50 meq/ 1,050 mls @ 75 mls/hr 06/12/20 07:00 06/12/20 13:05 Sodium Chloride IV 75 mls/hr DIRECT DENNIS Administration Insulin Human Isoph/Insulin Regular 16 unit 06/13/20 10:23 Humulin 70/30 SUB-Q BIDDIAB DENNIS Insulin Human Lispro 0 unit 06/11/20 11:30 06/13/20 08:43 Humalog SUB-Q 4 unit ACHS DENNIS Administration Protocol Metoclopramide HCl 10 mg 06/10/20 19:34 06/11/20 10:18 Reglan IV 10 mg Q6H PRN Administration Nausea And Vomiting Metoprolol Tartrate 12.5 mg 06/12/20 22:00 06/12/20 22:41 Metoprolol PO 12.5 mg BID DENNIS Administration Morphine Sulfate 2 mg 06/10/20 19:34 Morphine IV Q4H PRN Pain, Moderate (4-6) Naloxone HCl 0.1 mg 06/10/20 19:34 Naloxone IV Q2MIN PRN Res Rate </= 8 or 02 SAT < 92% Ondansetron HCl 4 mg 06/10/20 19:34 Zofran IV Q3H PRN Nausea And Vomiting Promethazine HCl 25 mg 06/10/20 19:34 Phenergan [place] Q6H PRN N/V IF NPO AND NO IV ACCESS Sodium Chloride 10 ml 06/10/20 22:00 06/12/20 22:42 Sodium Chloride Flush Syringe 10 Ml IV 10 ml BID DENNIS Administration Sodium Chloride 10 ml 06/10/20 19:34 Sodium Chloride Flush Syringe 10 Ml IV PRN PRN LINE FLUSH Nutrition/Malnutrition Assess - Dietary Evaluation Nutrition/Malnutrition Findings: Nutrition Notes Start: 06/12/20 10:59 Freq: Status: Active Protocol: Document 06/12/20 11:00 EYAL (Rec: 06/12/20 12:25 EYAL [id number]) Co-Sign 06/12/20 11:00 LM Nutrition Notes Need for Assessment generated from: MD Order,MST,Education Initial or Follow up Assessment Current Diagnosis Diabetes Other Pertinent Diagnosis DKA Current Diet Consistent Carbohydrate Labs/Tests Gluc 294 K 3.1 Pertinent Medications Humilin Humalog Reglan K-Dur 40 mEq Lasix (d/c) Height 4 ft 9 in Weight 60 kg [place] Body Weight (kg) 38.63 BMI 28.6 Intake Prior to Admission Poor Weight change and time frame Pt reported unintentional 10kg wt loss since Sep representing a 14% wt loss in 9 months. Weight Status Overweight Subjective/Other Information Consulted for poor oral intake and MST 3. Pt reported unintentional wt loss of 14% since September 2019 and consuming half of what she normally intakes since September . Reported constipation. Obtained typical intake. Educated on consistent carbohydrate diet and fluids. Percent of energy/protein needs met: 0%/0% Burn Absent Trauma Absent GI Symptoms Constipation Food Allergy No Usual Diet at Home Beans, rice, chicken, teas, coffee Current % PO Negligible Minimum of two criteria Yes Energy Intake (severe) < or equal to 50% Estimated Energy Requirement > or equal to 5 days Interpretation of Weight Loss (severe) >10% in 6 months #2 Nutrition Diagnosis Food and nutrition-related knowledge deficit Etiology lack of prior exposure to diabetes nutrition education As Evidenced by Signs and Symptoms pt did not know how to identify carbohydrates, avoiding vegetables and fruit, and BG 294. #1 Nutrition Diagnosis Malnutrition Etiology diabetes and DKA As Evidenced by Signs and Symptoms pt reported unintentional wt loss of 14% and eating less than 50% of normal intake in 9 months Is patient on ventilator? No Is Patient Ambulatory and/or Out of Bed Yes REE-(Harrington-St. Jeor-ambulatory/OOB) [ 1350.544 [id number]] Calculation Used for Recommendations Harrington-St or Additional Notes Protein: 1.2-1.5g/kg 72-90g Fluid: 1ml/kg Nutrition Intervention Change Diet Order: Continue Consistent Carbohydrate Diet Add Supplement/Snack (indicate name/kcal Glucernia Vanilla, [place] /protein ) BID Provides kCal: 440 Provides Protein (gm) 20 Teaching Recipient Patient Learning Readiness Fair Teaching Methods Discussion,Handout Response to Teaching Verbalize understanding Education Handouts Provided Consistent Carbohydrate Barriers to Learning Language,Emotional RD phone number provided Yes Patient aware of follow up options Yes Actions To Overcome Barriers Contact Supervisor Publications Goal #1 Pt will meet at least 75% of her energy and protein needs via ONS and PO Anticipated Discharge Needs: Consistent Carbohydrate Diet Follow-Up By: 06/16/20 Additional Comments F/u intakes
[2020-06-13] MEDS ORDERED: POTASSIUM CHLORIDE ER 20 MEQ TAB PO SCH (11:00)
[2020-06-13] MEDS: cefTRIAXone/NS 2 GM/100 ML 2 GM/100 ML BAG IV SCH (11:52)
[2020-06-13] MEDS: ASPIRIN 81 MG TAB CHEW PO SCH (11:56)
[2020-06-13] MEDS: FAMOTIDINE 20 MG TAB PO SCH ×2 (11:56→21:50)
[2020-06-13] MEDS: METOPROLOL TARTRATE 25 MG TAB PO SCH ×2 (12:04→21:55)
[2020-06-13] MEDS ORDERED: INSULIN NPH/REGULAR 70/30 INJ SUB-Q SCH ×2 (17:00→18:01)
[2020-06-13] MEDS ORDERED: INSULIN NPH/REGULAR 70/30 INJ SUB-Q NR (17:58)
[2020-06-13] MEDS: SODIUM BICARBONATE 50 MEQ in SODIUM CHLORIDE 0.9% 1000 ML 1,000 ML IV SCH (22:05)
[2020-06-13] MEDS ORDERED: MAGNESIUM CITRATE 300 ML ORAL LIQD PO ONE (22:44)
[2020-06-14] MEDS: INSULIN LISPRO 100 UNIT/ML VIAL 3 mL SUB-Q SCH ×3 (07:30→16:19)
[2020-06-14] MEDS ORDERED: INSULIN NPH/REGULAR 70/30 INJ SUB-Q SCH ×2 (08:00→17:00)
[2020-06-14] MEDS: ASPIRIN 81 MG TAB CHEW PO SCH (09:31)
[2020-06-14] MEDS: cefTRIAXone/NS 2 GM/100 ML 2 GM/100 ML BAG IV SCH (09:31)
[2020-06-14] MEDS: METOPROLOL TARTRATE 25 MG TAB PO SCH (09:32)
[2020-06-14] MEDS: FAMOTIDINE 20 MG TAB PO SCH (09:32)
--- NOTE | 2020-06-14 11:45 | Discharge Summary ---
Providers - Providers Date of Admission: 06/10/20 14:27 Date of discharge: 06/14/20 Attending physician: VIGNESH CHAPA 06/10/20 19:31 Consult to Dietitian/Nutrition [CONS] Routine Physician Instructions: Reason For Exam: DKA Reason for Consult: Nutrition Recommendations Reason for Consult: Diet education 06/11/20 19:53 Consult to Dietitian/Nutrition [CONS] Routine Physician Instructions: Reason For Exam: Reason for Consult: Poor oral intake Primary care physician: CHEMICAL ETCHING PROCESSOR Hospitalization Reason for admission: Diabetic ketoacidosis Condition: Fair Disposition: DC/[place]-06 HOME UNDER HOME [facility] Time spent for discharge: 32 min Core Measure Documentation - Palliative Care Palliative Care/ Comfort Measures: Not Applicable - Core Measures Any of the following diagnoses?: none Exam - Constitutional Vitals: Temp Pulse Resp BP Pulse Ox 97.4 F L 85 18 98/63 94 06/14/20 05:35 06/14/20 05:35 06/14/20 05:35 06/14/20 05:35 06/14/20 05:35 General appearance: Present: no acute distress, well-nourished - EENT Eyes: Present: PERRL, EOM intact - Neck Neck: Present: supple, normal ROM - Respiratory Respiratory effort: normal Respiratory: bilateral: diminished, negative: rales, rhonchi, wheezing - Cardiovascular Rhythm: regular Heart Sounds: Present: S1 & S2 - Extremities Extremities: no ischemia, No edema - Abdominal General gastrointestinal: Present: soft, non-tender, non-distended, normal bowel sounds - Integumentary Integumentary: Present: clear, warm - Musculoskeletal Musculoskeletal: strength equal bilaterally - Psychiatric Psychiatric: appropriate mood/affect, cooperative - Neurologic Neurologic: moves all extremities Plan Activity: advance as tolerated, fall precautions Diet: diabetic Additional Instructions: Advised to see private neurocritical care physician/diabetic specialist Dr. Virginia Amaya in 1 week. Advised to comply with medications, diet, follow-up visits. If you have worsening symptoms contact MD or go to emergency room. Patient needs to see primary care physician in 2 to 3 days Follow up with: BERT ROWELL MD [Primary Care Provider] - 3-5 Days VIRGINIA AMAYA MD [Staff Physician] - 7 Days Prescriptions: Insulin Regular, Human [Humulin R] See Protocol MS QACHS #1 vial Insulin NPH/Regular [NovoLIN 70/30] 24 unit SUB-Q BIDDIAB #1 vial Famotidine [Pepcid] 20 mg PO BID #30 tablet Other Discharge Orders: Glucometer (Amb) Location: None Selected Glucometer supplies[Amb] Location: None Selected
--- NOTE | 2020-06-14 16:00 | Progress Note ---
Assessment and Plan Assessment and plan: Assessment and Plan Assessment and plan: --DKA (diabetic ketoacidoses) Current Visit: Yes Status: Acute Plan to address problem: s/p DKA protocol on insulin drip Currently on Accu-Chek sliding scale coverage ADA diet Long-acting insulin Novolin 70/30 --Type 2 diabetes mellitus; moderate control Current Visit: Yes Status: Acute Plan to address problem: status post DKA Uncontrolled blood sugars Accu-Chek sliding scale coverage ADA diet Closely monitor blood sugars increase Novolin 70/30 dose to 16 units twice daily Diabetic education, diabetic diet education Possible home health nurse for disease monitoring at discharge --Metabolic acidosis Current Visit: Yes Status: Acute Plan to address problem: Improving, continue IV fluids Sodium bicarb if needed --Elevated D-dimers; CTA chest negative for PE Check lower extremity venous Doppler to evaluate for DVT --Hypokalemia/hypophosphatemia Current Visit: Yes Status: Acute Plan to address problem: Replace with potassium phosphate IV Follow electrolytes --SIRS (systemic inflammatory response syndrome) Current Visit: Yes Status: Acute Plan to address problem: Patient is tachypneic and has a high white count IV antibiotics empirically, blood cultures negative to date Follow urine cultures --Hyponatremia/pseudohyponatremia due to hyperglycemia Current Visit: Yes Status: Acute Plan to address problem: Secondary to high blood glucose levels Should correct with correction of blood glucose levels Sodium levels significantly improved --Severe protein calorie malnutrition; Current Visit: Yes Status: Acute Plan to address problem: Nutrition supplements, nutrition consult, supportive care -- Hypothermia Current Visit: Yes Status: Acute . Plan to address problem: Resolved a good morning -- DVT prophylaxis Current Visit: Yes Status: Acute Plan to address problem: Heparin subcu and GI prophylaxis We will try to reach family to get more information about the patient And also discuss patient's condition and treatment plan We will closely monitor the patient and adjust the management as needed 06/13; patient's blood sugars moderate control increase Novolin 70/30 dose Monitor blood sugars and adjust as needed Possible discharge tomorrow if stable Hospitalist Physical - Constitutional Vitals: Temp Pulse Resp BP Pulse Ox 97.0 F L 102 H 20 103/69 97 06/14/20 11:27 06/14/20 11:27 06/14/20 11:27 06/14/20 11:27 06/14/20 11:27 General appearance: Present: no acute distress, well-nourished HEART Score - HEART Score Troponin: Troponin T < 0.010 ng/mL (0.00-0.029) 06/10/20 20:42 Results - Labs CBC & Chem 7: 06/12/20 07:00 06/14/20 09:53 Labs: Laboratory Last Values WBC 16.0 K/mm3 (4.5-11.0) H 06/12/20 07:00 RBC 4.17 M/mm3 (3.65-5.03) 06/12/20 07:00 Hgb 13.3 gm/dl (10.1-14.3) 06/12/20 07:00 Hct 38.3 % (30.3-42.9) D 06/12/20 07:00 MCV 92 fl (79-97) 06/12/20 07:00 MCH 32 pg (28-32) 06/12/20 07:00 MCHC 35 % (30-34) H 06/12/20 07:00 RDW 13.3 % (13.2-15.2) 06/12/20 07:00 Plt Count 184 K/mm3 (140-440) 06/12/20 07:00 Lymph % (Auto) 7.0 % (13.4-35.0) L 06/12/20 07:00 [place] % (Auto) 7.3 % (0.0-7.3) 06/12/20 07:00 Eos % (Auto) 0.0 % (0.0-4.3) 06/12/20 07:00 Baso % (Auto) 0.2 % (0.0-1.8) 06/12/20 07:00 Lymph # (Auto) 1.1 K/mm3 (1.2-5.4) L 06/12/20 07:00 [place] # (Auto) 1.2 K/mm3 (0.0-0.8) H 06/12/20 07:00 Eos # (Auto) 0.0 K/mm3 (0.0-0.4) 06/12/20 07:00 Baso # (Auto) 0.0 K/mm3 (0.0-0.1) 06/12/20 07:00 Add Manual Diff Complete 06/10/20 12:36 Total Counted 100 09/22/20 12:36 Seg Neutrophils % 85.5 % (40.0-70.0) H 06/12/20 07:00 Seg Neuts % (Manual) 92.0 % (40.0-70.0) H 06/10/20 12:36 Band Neutrophils % 0 % 06/10/20 12:36 Lymphocytes % (Manual) 3.0 % (13.4-35.0) L 06/10/20 12:36 Reactive Lymphs % (Man) 0 % 06/10/20 12:36 Monocytes % (Manual) 5.0 % (0.0-7.3) 06/10/20 12:36 Eosinophils % (Manual) 0 % (0.0-4.3) 06/10/20 12:36 Basophils % (Manual) 0 % (0.0-1.8) 06/10/20 12:36 Metamyelocytes % 0 % 06/10/20 12:36 Myelocytes % 0 % 06/10/20 12:36 Promyelocytes % 0 % 06/10/20 12:36 Blast Cells % 0 % 06/10/20 12:36 Nucleated RBC % Not Reportable 06/10/20 12:36 Seg Neutrophils # 13.7 K/mm3 (1.8-7.7) H 06/12/20 07:00 Seg Neutrophils # Man 23.7 K/mm3 (1.8-7.7) H 06/10/20 12:36 Band Neutrophils # 0.0 K/mm3 06/10/20 12:36 Lymphocytes # (Manual) 0.8 K/mm3 (1.2-5.4) L 06/10/20 12:36 Abs React Lymphs (Man) 0.0 K/mm3 06/10/20 12:36 Monocytes # (Manual) 1.3 K/mm3 (0.0-0.8) H 06/10/20 12:36 Eosinophils # (Manual) 0.0 K/mm3 (0.0-0.4) 06/10/20 12:36 Basophils # (Manual) 0.0 K/mm3 (0.0-0.1) 06/10/20 12:36 Metamyelocytes # 0.0 K/mm3 06/10/20 12:36 Myelocytes # 0.0 K/mm3 06/10/20 12:36 Promyelocytes # 0.0 K/mm3 06/10/20 12:36 Blast Cells # 0.0 K/mm3 06/10/20 12:36 WBC Morphology Not Reportable 06/10/20 12:36 Hypersegmented Neuts Not Reportable 06/10/20 12:36 Hyposegmented Neuts Not Reportable 06/10/20 12:36 Hypogranular Neuts Not Reportable 06/10/20 12:36 Smudge Cells Not Reportable 06/10/20 12:36 Toxic Granulation Not Reportable 06/10/20 12:36 Toxic Vacuolation Not Reportable 06/10/20 12:36 Dohle Bodies Not Reportable 06/10/20 12:36 Pelger-Huet Anomaly Not Reportable 06/10/20 12:36 Evelia Rods Not Reportable 06/10/20 12:36 Platelet Estimate Consistent w auto 06/10/20 12:36 Clumped Platelets Not Reportable 06/10/20 12:36 Plt Clumps, EDTA Not Reportable 06/10/20 12:36 Large Platelets Not Reportable 06/10/20 12:36 Giant Platelets Not Reportable 06/10/20 12:36 Platelet Satelliting Not Reportable 06/10/20 12:36 Plt Morphology Comment Not Reportable 06/10/20 12:36 RBC Morphology Normal 06/10/20 12:36 Dimorphic RBCs Not Reportable 06/10/20 12:36 Polychromasia Not Reportable 06/10/20 12:36 Hypochromasia Not Reportable 06/10/20 12:36 Poikilocytosis Not Reportable 06/10/20 12:36 Anisocytosis Not Reportable 06/10/20 12:36 Microcytosis Not Reportable 06/10/20 12:36 Macrocytosis Not Reportable 06/10/20 12:36 Spherocytes Not Reportable 06/10/20 12:36 Pappenheimer Bodies Not Reportable 06/10/20 12:36 Sickle Cells Not Reportable 06/10/20 12:36 Target Cells Not Reportable 06/10/20 12:36 Tear Drop Cells Not Reportable 06/10/20 12:36 Ovalocytes Not Reportable 06/10/20 12:36 Helmet Cells Not Reportable 06/10/20 12:36 Martinez-Filer Bodies Not Reportable 06/10/20 12:36 [place] Rings Not Reportable 06/10/20 12:36 [place] Cells Not Reportable 06/10/20 12:36 Bite Cells Not Reportable 06/10/20 12:36 Crenated Cell Not Reportable 06/10/20 12:36 Elliptocytes Not Reportable 06/10/20 12:36 Acanthocytes (Spur) Not Reportable 06/10/20 12:36 Rouleaux Not Reportable 06/10/20 12:36 Hemoglobin C Crystals Not Reportable 06/10/20 12:36 Schistocytes Not Reportable 06/10/20 12:36 Malaria parasites Not Reportable 06/10/20 12:36 Joss Bodies Not Reportable 06/10/20 12:36 Hem Pathologist Commnt No 06/10/20 12:36 PT 14.4 Sec. (12.2-14.9) 06/10/20 20:42 INR 1.10 (0.87-1.13) 06/10/20 20:42 D-Dimer 383.92 ng/mlDDU (0-234) H 06/11/20 05:44 VBG pH 7.021 (7.320-7.420) L* 06/10/20 12:36 Sodium 139 mmol/L (137-145) 06/13/20 08:29 Potassium 3.6 mmol/L (3.6-5.0) 06/14/20 09:53 Chloride 96.2 mmol/L (98-107) L 06/13/20 08:29 Carbon Dioxide 24 mmol/L (22-30) D 06/13/20 08:29 Anion Gap 22 mmol/L 06/13/20 08:29 BUN 8 mg/dL (7-17) 06/13/20 08:29 Creatinine 0.3 mg/dL (0.6-1.2) L 06/13/20 08:29 Estimated GFR > 60 ml/min 06/13/20 08:29 BUN/Creatinine Ratio 27 % 06/13/20 08:29 Glucose 284 mg/dL (65-100) H 06/13/20 08:29 POC Glucose 334 (70-105) H 06/14/20 11:43 Lactic Acid 1.50 mmol/L (0.7-2.0) 06/10/20 15:56 Calcium 8.7 mg/dL (8.4-10.2) 06/13/20 08:29 Phosphorus 2.10 mg/dL (2.5-4.5) L 06/14/20 09:53 Magnesium 2.10 mg/dL (1.7-2.3) 06/14/20 09:53 Total Bilirubin 0.90 mg/dL (0.1-1.2) 06/12/20 07:00 AST 37 units/L (5-40) 06/12/20 07:00 ALT 23 units/L (7-56) 06/12/20 07:00 Alkaline Phosphatase 85 units/L (35-129) 06/12/20 07:00 Total Creatine Kinase 85 units/L (30-135) 06/10/20 20:42 Troponin T < 0.010 ng/mL (0.00-0.029) 06/10/20 20:42 Total Protein 5.9 g/dL (6.3-8.2) L D 06/12/20 07:00 Albumin 2.9 g/dL (3.9-5) L 06/12/20 07:00 Albumin/Globulin Ratio 1.0 % 06/12/20 07:00 TSH 0.161 mlU/mL (0.270-4.200) L 06/10/20 14:26 Free T4 1.27 ng/dL (0.76-1.46) 06/10/20 15:56 Urine Color Straw (Yellow) 06/10/20 17:13 Urine Turbidity Clear (Clear) 06/10/20 17:13 Urine pH 5.0 (5.0-7.0) 06/10/20 17:13 Ur Specific [place] 1.015 (1.003-1.030) 06/10/20 17:13 Urine Protein 30 mg/dl mg/dL (Negative) 06/10/20 17:13 Urine Glucose (UA) >=500 mg/dL (Negative) 06/10/20 17:13 Urine Ketones 80 mg/dL (Negative) 06/10/20 17:13 Urine Blood Mod (Negative) 06/10/20 17:13 Urine Nitrite Neg (Negative) 06/10/20 17:13 Urine Bilirubin Neg (Negative) 06/10/20 17:13 Urine Urobilinogen < 2.0 mg/dL (<2.0) 06/10/20 17:13 Ur Leukocyte Esterase Neg (Negative) 06/10/20 17:13 Urine WBC (Auto) 3.0 /HPF (0.0-6.0) 06/10/20 17:13 Urine RBC (Auto) 1.0 /HPF (0.0-6.0) 06/10/20 17:13 Urine Bacteria (Auto) 1+ /HPF (Negative) 06/10/20 17:13 Urine Mucus Few /HPF 06/10/20 17:13 Microbiology: Microbiology 06/10/20 12:36 Peripheral/Venous Blood Culture - Preliminary NO GROWTH AFTER 4 DAYS 06/10/20 12:36 Peripheral/Venous Blood Culture - Preliminary NO GROWTH AFTER 4 DAYS 06/10/20 17:14 Urine,Clean Catch Urine Culture - Final Curry/IV: Voiding Method Toilet IV Catheter Type [Right INT / Saline Lock Antecubital] IV Catheter Type [Right Hand] INT / Saline Lock Active Medications - Current Medications Current Medications: Generic Name Dose Route Start Last Admin Trade Name Freq PRN Reason Stop Dose Admin Acetaminophen 650 mg 06/10/20 19:34 Tylenol PO Q4H PRN Pain MILD(1-3)/Fever >100.5/FORDE Aspirin 81 mg 06/10/20 16:00 06/14/20 09:31 Baby Aspirin PO 81 mg QDAY DENNIS Administration Bisacodyl 10 mg 06/13/20 22:39 Dulcolax PO QDAY PRN Constipation Dextrose 0 ml 06/10/20 19:30 D50w (25gm) Syringe IV Q30MIN PRN Hypoglycemia Protocol Famotidine 20 mg 06/11/20 10:00 06/14/20 09:32 Pepcid PO 20 mg BID DENNIS Administration Hydromorphone HCl 1 mg 06/10/20 19:34 Dilaudid IV Q3H PRN Pain , Severe (7-10) Ceftriaxone Sodium 2 gm in 100 mls @ 200 mls/hr 06/11/20 20:09 06/14/20 09:31 Rocephin/Ns 2 Gm/100 Ml IV 06/17/20 20:08 200 mls/hr Q24HR DENNIS Administration Protocol Sodium Bicarbonate 50 meq/ 1,050 mls @ 75 mls/hr 06/12/20 07:00 06/13/20 22:05 Sodium Chloride IV 75 mls/hr DIRECT DENNIS Administration Insulin Human Isoph/Insulin Regular 24 unit 06/14/20 17:00 Humulin 70/30 SUB-Q BIDDIAB DENNIS Insulin Human Lispro 0 unit 06/11/20 11:30 06/14/20 11:30 Humalog SUB-Q 6 unit ACHS DENNIS Administration Protocol Metoclopramide HCl 10 mg 06/10/20 19:34 06/11/20 10:18 Reglan IV 10 mg Q6H PRN Administration Nausea And Vomiting Metoprolol Tartrate 12.5 mg 06/12/20 22:00 06/14/20 09:32 Metoprolol PO 12.5 mg BID DENNIS Administration Morphine Sulfate 2 mg 06/10/20 19:34 06/13/20 23:00 Morphine IV 2 mg Q4H PRN Administration Pain, Moderate (4-6) Naloxone HCl 0.1 mg 06/10/20 19:34 Naloxone IV Q2MIN PRN Res Rate </= 8 or 02 SAT < 92% Ondansetron HCl 4 mg 06/10/20 19:34 Zofran IV Q3H PRN Nausea And Vomiting Promethazine HCl 25 mg 06/10/20 19:34 Phenergan NC Q6H PRN N/V IF NPO AND NO IV ACCESS Sodium Chloride 10 ml 06/10/20 22:00 06/14/20 09:30 Sodium Chloride Flush Syringe 10 Ml IV 10 ml BID DENNIS Administration Sodium Chloride 10 ml 06/10/20 19:34 Sodium Chloride Flush Syringe 10 Ml IV PRN PRN LINE FLUSH Nutrition/Malnutrition Assess - Dietary Evaluation Nutrition/Malnutrition Findings: Nutrition Notes Start: 06/12/20 10:59 Freq: Status: Active Protocol: Document 06/12/20 11:00 EYAL (Rec: 06/12/20 12:25 EYAL [id number]) Co-Sign 06/12/20 11:00 LM Nutrition Notes Need for Assessment generated from: MD Order,MST,Education Initial or Follow up Assessment Current Diagnosis Diabetes Other Pertinent Diagnosis DKA Current Diet Consistent Carbohydrate Labs/Tests Gluc 294 K 3.1 Pertinent Medications Humilin Humalog Reglan K-Dur 40 mEq Lasix (d/c) Height 4 ft 9 in Weight 60 kg [place] Body Weight (kg) 38.63 BMI 28.6 Intake Prior to Admission Poor Weight change and time frame Pt reported unintentional 10kg wt loss since Sep representing a 14% wt loss in 9 months. Weight Status Overweight Subjective/Other Information Consulted for poor oral intake and MST 3. Pt reported unintentional wt loss of 14% since September 2019 and consuming half of what she normally intakes since September . Reported constipation. Obtained typical intake. Educated on consistent carbohydrate diet and fluids. Percent of energy/protein needs met: 0%/0% Burn Absent Trauma Absent GI Symptoms Constipation Food Allergy No Usual Diet at Home Beans, rice, chicken, teas, coffee Current % PO Negligible Minimum of two criteria Yes Energy Intake (severe) < or equal to 50% Estimated Energy Requirement > or equal to 5 days Interpretation of Weight Loss (severe) >10% in 6 months #2 Nutrition Diagnosis Food and nutrition-related knowledge deficit Etiology lack of prior exposure to diabetes nutrition education As Evidenced by Signs and Symptoms pt did not know how to identify carbohydrates, avoiding vegetables and fruit, and BG 294. #1 Nutrition Diagnosis Malnutrition Etiology diabetes and DKA As Evidenced by Signs and Symptoms pt reported unintentional wt loss of 14% and eating less than 50% of normal intake in 9 months Is patient on ventilator? No Is Patient Ambulatory and/or Out of Bed Yes REE-([facility]-ambulatory/OOB) [ 1350.544 [id number]] Calculation Used for Recommendations [facility] Additional Notes Protein: 1.2-1.5g/kg 72-90g Fluid: 1ml/kg Nutrition Intervention Change Diet Order: Continue Consistent Carbohydrate Diet Add Supplement/Snack (indicate name/kcal Glucernia Vanilla, [place] /protein ) BID Provides kCal: 440 Provides Protein (gm) 20 Teaching Recipient Patient Learning Readiness Fair Teaching Methods Discussion,Handout Response to Teaching Verbalize understanding Education Handouts Provided Consistent Carbohydrate Barriers to Learning Language,Emotional RD phone number provided Yes Patient aware of follow up options Yes Actions To Overcome Barriers Contact Feed Project Engineer Goal #1 Pt will meet at least 75% of her energy and protein needs via ONS and PO Anticipated Discharge Needs: Consistent Carbohydrate Diet Follow-Up By: 06/16/20 Additional Comments F/u intakes
[2020-06-14 16:44] VITALS: BP 128/71
== END 2020-06-14 18:32 | disposition home health service (06) | DRG 637 ==
LOC: ED 12:10 → CC1 14:27 → 3A 06-11 13:20
PROVIDERS: ADMIT Internal Medicine; ATTEND Internal Medicine
DX: E11.10 Type 2 diabetes mellitus with ketoacidosis without coma (principal); E43 Unspecified severe protein-calorie malnutrition; R65.10 Systemic inflammatory response syndrome (SIRS) of non-infectious origin without acute organ dysfunction; E87.1 Hypo-osmolality and hyponatremia; T68.XXXA Hypothermia, initial encounter; E87.6 Hypokalemia; E83.39 Other disorders of phosphorus metabolism; Z68.25 Body mass index [BMI] 25.0-25.9, adult; Z82.49 Family history of ischemic heart disease and other diseases of the circulatory system
CPT/HCPCS: 36415; 71045; 71275; 74176; 80048; 80053; 81001; 82140; 82550; 82805; 82962; 83735; 84100; 84132; 84439; 84443; 84484; 85007; 85025; 85379; 85610; 87040; 87086; 93005; 96361; 96374; 96375; 99291; G0378; J0696; J1815; J1940; J2270; J2765; J3480; J7030; J7040; J7042; Q9967

== ENCOUNTER 2020-06-27 10:24 | Emergency (ER) | payer SELFPAY ==
--- NOTE | 2020-06-27 10:53 | Emergency Department Report ---
ED General Adult HPI - General Chief complaint: Hyperglycemia Stated complaint: SUGAR HIGH Time Seen by Provider: 06/27/20 10:50 Source: family, new home sales consultant Mode of arrival: Ambulatory Limitations: Language Barrier - History of Present Illness Initial comments: 59-year-old female newly diagnosed with diabetes 1 to 2 weeks ago and started on insulin presents emergency department complaining of a hyper glycemic episode via her home health nurse. States that her home health nurse went out and found her blood sugar to be in an slight excess of 400 and advised to come to the emergency department for further evaluation and treatment. The patient presents with her family member who is translating stating that they only came in per the recommendation of the home health nurse the patient does not report any chest pain, shortness of breath, abdominal pain, fever, chills, sweats, nausea, vomiting, palpitations. States that she still does have her medications. Improves with: none Worsens with: none Associated Symptoms: denies: confusion, cough, diaphoresis, loss of appetite, rash, shortness of breath, syncope, weakness - Related Data Previous Rx's Medication Instructions Recorded Last Taken Type Famotidine [Pepcid] 20 mg PO BID #30 tablet 06/14/20 Unknown Rx Insulin NPH/Regular [NovoLIN 70/30] 24 unit SUB-Q BIDDIAB #1 vial 06/27/20 Unknown Rx Insulin Regular, Human [Humulin R] See Protocol SC QACHS #1 vial 06/27/20 Unknown Rx Allergies Allergy/AdvReac Type Severity Reaction Status Date / Time No Known Allergies Allergy Unverified 06/10/20 12:28 ED Review of Systems ROS: Stated complaint: SUGAR HIGH Other details as noted in HPI Comment: All other systems reviewed and negative ED Past Medical Hx - Past Medical History Previous Medical History?: Yes Hx Diabetes: Yes - Surgical History Past Surgical History?: No - Social History Smoking Status: Never Smoker Substance Use Type: None - Medications Home Medications: Home Medications Medication Instructions Recorded Confirmed Last Taken Type Famotidine [Pepcid] 20 mg PO BID #30 tablet 06/14/20 Unknown Rx Insulin NPH/Regular [NovoLIN 70/30] 24 unit SUB-Q BIDDIAB #1 vial 06/27/20 Unknown Rx Insulin Regular, Human [Humulin R] See Protocol [place] QACHS #1 vial 06/27/20 Unknown Rx ED Physical Exam - General Limitations: Language Barrier General appearance: alert, in no apparent distress - Head Head exam: Present: atraumatic, normocephalic - Eye Eye exam: Present: normal appearance, PERRL Pupils: Present: normal accommodation - ENT ENT exam: Present: normal exam, mucous membranes moist - Neck Neck exam: Present: normal inspection, full ROM - Respiratory Respiratory exam: Present: normal lung sounds bilaterally. Absent: respiratory distress, wheezes, rales, rhonchi, chest wall tenderness, accessory muscle use - Cardiovascular Cardiovascular Exam: Present: regular rate, normal rhythm, normal heart sounds. Absent: bradycardia, tachycardia, systolic murmur, diastolic murmur, rubs, gallop - GI/Abdominal GI/Abdominal exam: Present: soft, normal bowel sounds. Absent: distended, tenderness, guarding, hyperactive bowel sounds, hypoactive bowel sounds, organomegaly - Extremities Exam Extremities exam: Present: normal inspection - Back Exam Back exam: Present: normal inspection - Neurological Exam Neurological exam: Present: alert, oriented X3 - Psychiatric Psychiatric exam: Present: normal affect, normal mood - Skin Skin exam: Present: warm, dry, intact, normal color. Absent: rash ED Course Vital Signs 06/27/20 10:40 Temperature 98.1 F Pulse Rate 117 H Respiratory 17 Rate Blood Pressure 126/82 O2 Sat by Pulse 98 Oximetry ED Medical Decision Making - Lab Data Result diagrams: 06/27/20 14:02 06/27/20 14:02 - Medical Decision Making 59-year-old female presenting with acute hypoglycemia. Her differential diagnosis includes DKA hyper hyperosmolar ketotic state, infection. We consider DKA versus hyperosmolar nonketotic state, sepsis, Marija possible etiology of the patient's current presentation. However given the current history and physical including a current glucose level improving to the to 250s with no treatment the current presentation is consistent with acute asymptomatic hyperglycemia. Plan to treat supportively no indication for further work-up at this time. Plan supportive care, serial [id number] glucose monitoring labs and reassessment. Had a long discussion with the patient with utilization of a pcat instructor also discussed of the proper utilization of the insulin with her family as well which he did express an understanding. Critical care attestation.: If time is entered above; I have spent that time in minutes in the direct care of this critically ill patient, excluding procedure time. ED Disposition Clinical Impression: Hyperglycemia Disposition: DC-01 TO HOME OR SELFCARE Is pt being admited?: No Does the pt Need Aspirin: No Condition: Stable Instructions: Diabetic Hyperglycemia (ED) Additional Instructions: Please increase your morning 70/30 insulin to 28 units continue with your evening at 24 units of the 7030. Please also adhere to a sliding scale guidelin es Prescriptions: Insulin Regular, Human [Humulin R] See Protocol SC QACHS #1 vial Insulin NPH/Regular [NovoLIN 70/30] 24 unit SUB-Q BIDDIAB #1 vial Referrals: PRIMARY CAREMD [Primary Care Provider] - 3-5 Days NICOLE RAMON MD [Staff Physician] - 3-5 Days
[2020-06-27 14:41] LABS: Basophils % (Auto) 0.4 % (0.0-1.8); Eosinophils % (Auto) 0.2 % (0.0-4.3); Hematocrit 43.1 % (30.3-42.9); Hemoglobin 14.9 gm/dl (10.1-14.3); Lymphocytes % (Auto) 30.7 % (13.4-35.0); Mean Corpuscular HGB Conc 35 % (30-34); Mean Corpuscular Volume 94 fl (79-97); Monocytes # (Auto) 0.7 K/mm3 (0.0-0.8); Monocytes % (Auto) 6.7 % (0.0-7.3); Platelet Count 401 K/mm3 (140-440); Red Blood Count 4.57 M/mm3 (3.65-5.03); Red Cell Distribution Width 13.3 % (13.2-15.2)
[2020-06-27 14:54] LABS: Alanine Aminotransferase 31 units/L (7-56); Albumin 3.6 g/dL (3.9-5); Blood Urea Nitrogen 20 mg/dL (7-17); Calcium 9.5 mg/dL (8.4-10.2); Hemolysis Index 29
[2020-06-27 14:55] LABS: BUN/Creatinine Ratio 67
[2020-06-27 18:32] VITALS: BP 120/83
== END 2020-06-27 18:51 | disposition home or self-care (01) ==
LOC: ED 10:24
DX: E11.65 Type 2 diabetes mellitus with hyperglycemia (principal); Z79.4 Long term (current) use of insulin; Z79.899 Other long term (current) drug therapy
CPT/HCPCS: 36415; 80053; 82962; 85025